=== PATIENT | male | born 1960 | race African-American/Black ===

== ENCOUNTER 2019-08-31 16:05 | Inpatient (IN) | payer MEDICARE, OTHER ==
[~2019-08-31] VITALS: Ht 172.7 cm; Wt 53.3 kg
[2019-08-31] MEDS ORDERED: ASPIRIN CHEWABLE 81 MG TABLET. PO ONE (16:30)
[2019-08-31] MEDS ORDERED: NITROGLYCERIN SUBLINGUAL 0.4 MG BOTTLE OF 25. SL PRN (16:30)
--- NOTE | 2019-08-31 17:06 | RAD ---
PORTABLE CHEST 1V Clinical indications: Chest pain and abdominal pain for one week. COMPARISON: December 26, 2015. Findings: No acute lung infiltrate or pleural effusion or pulmonary edema or lung mass or pneumothorax is seen. The heart size, pulmonary vasculature, mediastinum and both ken are stable. Impression: No acute radiographic abnormality is seen. Electronically signed by: Chase Harrell MD (08/31/2019 5:03 PM) [facility]
--- NOTE | 2019-08-31 17:19 | PHYS DOC ---
Past Medical History Past Medical History: Depression, Diabetes-Type II, High Cholesterol, Hypertension, Other Additional Past Medical Histor: myasthenia gravis Past Surgical History: Coronary Bypass Surgery, Other Additional Past Surgical Histo: spinal Alcohol Use: None Drug Use: None Adult General Chief Complaint Chief Complaint: CHEST PAIN HPI HPI Patient is a 59 year old with history of coronary artery disease status post CABG, diabetes, hypertension and dyslipidemia, smoking who presents with complaining of chest pain and side pain. Patient states he has had intermittent episodes of chest pain for the last 1 week and had pain in the substernal area all day. Patient states he had a syncopal episode yesterday and had a fall without head injury. Patient complaining of increasing pain since his fall as a sharp pain with radiation to his back and associated with shortness of breath, nausea, dizziness, palpitation. Patient states he had more than 10 episodes of diarrhea yesterday and more than 10 episodes of nonbloody diarrhea today and complaining of left lower quadrant cramping pain and rated his pain 10 over 10. Patient states he usually gets episodes of syncope with his pain. Patient denies taking aspirin or nitroglycerin today. Review of Systems Review of Systems Constitutional: Denies fever or chills [] Eyes: Denies change in visual acuity, redness, or eye pain [] HENT: Denies nasal congestion or sore throat [] Respiratory: Denies cough, reports shortness of breath [] Cardiovascular: No additional information not addressed in HPI [] GI: Reports abdominal pain, diarrhea [] : Denies dysuria or hematuria [] Musculoskeletal: Denies back pain or joint pain [] Integument: Denies rash or skin lesions [] Neurologic: Denies headache, focal weakness or sensory changes [] Endocrine: Denies polyuria or polydipsia [] All other systems were reviewed and found to be within normal limits, except as documented in this note. Current Medications Current Medications Current Medications Medications (Trade) Dose Ordered Sig/Ana Maria Start Time Stop Time Status Last Admin Dose Admin Aspirin (Children'S Aspirin) 324 mg 1X ONCE 08/31/19 16:30 08/31/19 16:35 DC Nitroglycerin (Nitrostat) 0.4 mg PRN Q5MIN PRN 08/31/19 16:30 09/01/19 16:29 Allergies Allergies Allergies Coded Allergies Type Severity Reaction Last Updated Verified No Known Drug Allergies 2/22/16 No Physical Exam Physical Exam Constitutional: Well developed, well nourished, mild distress, non-toxic appearance. [] HENT: Normocephalic, atraumatic. Eyes: PERRLA, EOMI, conjunctiva normal, no discharge. [] Neck: Normal range of motion, no tenderness, supple, no stridor. [] Cardiovascular:Heart rate regular rhythm, no murmur [] Lungs & Thorax: Bilateral breath sounds clear to auscultation , reproducible negro bsternal pain[] Abdomen: Bowel sounds normal, soft, left lower quadrant guarding, no tenderness, no masses, no pulsatile masses. [] Skin: Warm, dry, no erythema, no rash. [] Back: No tenderness, no CVA tenderness. [] Extremities: No tenderness, no cyanosis, no clubbing, ROM intact, no edema. [] Neurologic: Alert and oriented X 3, no focal deficits noted. [] Psychologic: Affect anxious, judgement normal, mood normal. [] Current Patient Data Vital Signs Vital Signs Date Time Temp Pulse Resp B/P (MAP) Pulse Ox O2 Delivery O2 Flow Rate FiO2 08/31/19 16:58 98.7 75 18 153/71 (98) 96 Room Air 98.7 Lab Values Laboratory Tests Test 08/31/19 17:16 Prothrombin Time 13.3 SEC (11.7-14.0) Prothrombin Time INR 1.0 (0.8-1.1) Sodium Level 140 mmol/L (136-145) Potassium Level 4.0 mmol/L (3.5-5.1) Chloride Level 102 mmol/L (98-107) Carbon Dioxide Level 28 mmol/L (21-32) Anion Gap 10 (6-14) Blood Urea Nitrogen 22 mg/dL (8-26) Creatinine 1.1 mg/dL (0.7-1.3) Estimated GFR (Cockcroft-Gault) 82.6 BUN/Creatinine Ratio 20 (6-20) Glucose Level 333 mg/dL (70-99) H Calcium Level 8.8 mg/dL (8.5-10.1) Magnesium Level 1.6 mg/dL (1.8-2.4) L Total Bilirubin 0.6 mg/dL (0.2-1.0) Aspartate Amino Transferase (AST) 11 U/L (15-37) L Alanine Aminotransferase (ALT) 15 U/L (16-63) L Alkaline Phosphatase 79 U/L (46-116) Creatine Kinase 64 U/L (39-308) Troponin I Quantitative < 0.017 ng/mL (0.000-0.055) JC-Cai-Y-Type Natriuretic Peptide 361 pg/mL (0-124) H Total Protein 7.3 g/dL (6.4-8.2) Albumin 3.4 g/dL (3.4-5.0) Albumin/Globulin Ratio 0.9 (1.0-1.7) L Lipase 31 U/L (73-393) L Laboratory Tests 08/31/19 17:16 EKG EKG EKG interpreted by me. EKG at 1622 showed normal sinus rhythm at rate of 77, left atrial abnormality, poor R-wave progress in anteroseptal leads, no acute ST and T-wave elevation. Radiology/Procedures Radiology/Procedures [][facility] [address] [place] [address] IMAGING REPORT Signed PATIENT: PEDRITO LOPEZ ACCOUNT: [id number] : 1960 LOCATION: ER AGE: 59 SEX: M EXAM STATUS: REG ER ORD. PHYSICIAN: SIS WOLFE MD REASON: chest pain and abdominal pain x1 week PROCEDURE: PORTABLE CHEST 1V PORTABLE CHEST 1V Clinical indications: Chest pain and abdominal pain for one week. COMPARISON: December 26, 2015. Findings: No acute lung infiltrate or pleural effusion or pulmonary edema or lung mass or pneumothorax is seen. The heart size, pulmonary vasculature, mediastinum and both ken are stable. Impression: No acute radiographic abnormality is seen. Electronically signed by: Uday Harrell MD (08/31/2019 5:03 PM) [facility] DICTATED and SIGNED BY: UDAY HARRELL MD DATE: 08/31/19 7895 Course & Med Decision Making Course & Med Decision Making Pertinent Labs and Imaging studies reviewed. (See chart for details) Patient requiring admission for further evaluation and treatment. Discussed with Dr. Olvera who is in agreement with admission. Discussed findings and plan with patient and family, who acknowledge understanding and agreement. Dragon Disclaimer Dragon Disclaimer This electronic medical record was generated, in whole or in part, using a voice recognition dictation system. Departure Departure Impression: Primary Impression: Acute chest pain Additional Impressions: Syncope Left lower quadrant pain Diarrhea Hyperglycemia Hypomagnesemia Disposition: ADMITTED INPATIENT (at 1706) Admitting Physician: RAFAEL (Dr. Olvera accepted admission at 1705) Condition: IMPROVED Referrals: UNKNOWN PCP NAME (PCP) The HEART Score for CP Pts HEART Score for Chest Pain: HEART Score for Chest Pain Response (Comments) Value History Moderately Suspicious 1 ECG Nonspecific Repolarizatio 1 Age >45 - < 65 1 Risk Factors >3 Risk Factors or Hx CAD 2 Troponin < Normal Limit 0 Total 5 Risk Factors: Risk Factors: DM, Current or recent (<one month) smoker, HTN, HLP, family history of CAD, obesity. Risk Scores: Score 0 - 3: 2.5% MACE over next 6 weeks - Discharge Home Score 4 - 6: 20.3% MACE over next 6 weeks - Admit for Clinical Observation Score 7 - 10: 72.7% MACE over next 6 weeks - Early Invasive Strategies Problem Qualifiers Additional Impressions: Syncope Syncope type: unspecified Qualified Codes: R55 - Syncope and collapse Diarrhea Diarrhea type: unspecified type Qualified Codes: R19.7 - Diarrhea, unspecified SIS WOLFE MD Aug 31, 2019 17:19
[2019-08-31 17:38] LABS: CALCIUM 8.8 mg/dL (8.5-10.1); CREATININE 1.1 mg/dL (0.7-1.3); GFR 82.6
--- NOTE | 2019-08-31 17:40 | PDOC1 ---
History and Physical Date of Admission Date of Admission DATE: 08/31/19 TIME: 17:38 Identification/Chief Complaint Chief Complaint Chest pain, syncope History of Present Illness History of Present Illness Mr Mims is a 59 year old with history of coronary artery disease status post CABG, diabetes, hypertension, dyslipidemia, smoking, Depression, and myasthenia gravis who presents with complaining of chest pain and side pain. Patient states he has had intermittent episodes of chest pain for the last 1 week and had pain in the substernal area since yesterday. Patient states he had a syncopal episode yesterday and had a fall without head injury and his friend has insisted he come to the ED. Patient complaining of increasing pain since his fall as a sharp pain with radiation to his back and associated with shortness of breath, nausea, dizziness, palpitation. Patient states he had more than 10 episodes of diarrhea yesterday and more than 10 episodes of nonbloody diarrhea today and complaining of left lower quadrant cramping pain and rated his pain 10 over 10. Patient denies taking aspirin or nitroglycerin today. Labs significant for glucose of 333, otherwise negative troponin. EKG - normal sinus rhythm at rate of 77, left atrial abnormality, poor R-wave progress in anteroseptal leads, no acute ST and T-wave elevation. CXR no acute abnormalities. His orthostatics were negative in ED on my examination. Due to his high risk cardiac history with CABG and his symptoms will admit for further workup Past Medical History Cardiovascular: CAD, HTN, Syncope, Hyperlipidemia Pulmonary: No pertinent hx CENTRAL NERVOUS SYSTEM: Other (Myasthenia Gravis) GI: No pertinent hx Heme/Onc: No pertinent hx Hepatobiliary: No pertinent hx Psych: Depression Rheumatologic: No pertinent hx Infectious disease: No pertinent hx ENT: No pertinent hx Renal/: Benign prostatic enlarg. Endocrine: Diabetes Dermatology: No pertinent hx Past Surgical History Past Surgical History: CABG Family History Family History: Diabetes, High Cholestrol, Hypertension Social History Smoke: 1 pack per day ALCOHOL: none Drugs: None Current Problem List Problem List Problems Medical Problems: (1) Acute chest pain Status: Acute (2) Diarrhea Status: Acute (3) Left lower quadrant pain Status: Acute (4) Syncope Status: Acute Current Medications Current Medications Current Medications Aspirin (Children'S Aspirin) 324 mg 1X ONCE PO ; Start 08/31/19 at 16:30; Stop 08/31/19 at 16:35; Status DC Nitroglycerin (Nitrostat) 0.4 mg PRN Q5MIN PRN SL CP RATING > 1/10; Start 08/31/19 at 16:30; Stop 09/01/19 at 16:29 Allergies Allergies: Coded Allergies: No Known Drug Allergies (Unverified , 12/26/15) ROS General: YES: Fatigue, Malaise; No: Chills, Night Sweats, Appetite, Other PSYCHOLOGICAL ROS: No: Anxiety, Behavioral Disorder, Concentration difficultie, Decreased libido, Depression, Disorientation, Hallucinations, Hostility, Irritablity, Memory difficulties, Mood Swings, Obsessive thoughts, Physical abuse, Sexual abuse, Sleep disturbances, Suicidal ideation, Other Eyes: No Blurry vision, No Decreased vision, No Double vision, No Dry eyes, No Excessive tearing, No Eye Pain, No Itchy Eyes, No Loss of vision, No Photoph obia, No Scotomata, No Uses contacts, No Uses glasses, No Other HEENT: No: Heacaches, Visual Changes, Hearing change, Nasal congestion, Nasal discharge, Oral lesions, Sinus pain, Sore Throat, Epistaxis, Sneezing, Snoring, Tinnitus, Vertigo, Vocal changes, Other ALLERGY AND IMMUNOLOGY: No: Hives, Insect Bite Sensitivity, Itchy/Watery Eyes, Nasal Congestion, Post Nasal Drip, Seasonal Allergies, Other Hematological and Lymphatic: No: Bleeding Problems, Blood Clots, Blood Transfusions, Brusing, Night Sweats, Pallor, Swollen Lymph Nodes, Other ENDOCRINE: No: Breast Changes, Galactorrhea, Hair Pattern Changes, Hot Flashes, Malaise/lethargy, Mood Swings, Palpitations, Polydipsia/polyuria, Skin Changes, Temperature Intolerance, Unexpected Weight Changes, Other Breast: No New/Changing Breast Lumps, No Nipple changes, No Nipple discharge, No Other Respiratory: YES: Shortness of breath; No: Cough, Hemoptysis, Orthopnea, Pleuritic Pain, SOB with excertion, Sputum Changes, Stridor, Tachypnea, Wheezing, Other Cardiovascular: yes Chest Pain; No Palpitations, No Orthopnea, No Paroxysmal Noc. Dyspnea, No Edema, No Lt Headedness, No Other Gastrointestinal: Yes Nausea, Yes Abdominal Pain, Yes Diarrhea, Yes Constipation; No Vomiting, No Melena, No Hematochezia, No Other Genitourinary: No Dysuria, No Frequency, No Incontinence, No Hematuria, No Retention, No Discharge, No Urgency, No Pain, No Flank Pain, No Other, No , No , No , No , No , No , No Musculoskeletal: No Gait Disturbance, No Joint Pain, No Joint Stiffness, No Joint Swelling, No Muscle Pain, No Muscular Weakness, No Pain In:, No Swelling In:, No Other Neurological: No Behavorial Changes, No Bowel/Bladder ControlChng, No Confusion, No Dizziness, No Gait Disturbance, No Headaches, No Impaired Coord/balance, No Memory Loss, No Numbness/Tingling, No Seizures, No Speech Problems, No Tremors, No Visual Changes, No Weakness, No Other Skin: No Dry Skin, No Eczema, No Hair Changes, No Lumps, No Mole Changes, No Mottling, No Nail Changes, No Pruritus, No Rash, No Skin Lesion Changes, No Other, No Acne Physical Exam General: Alert, Oriented X3, Cooperative, No acute distress HEENT: Atraumatic, PERRLA, EOMI, Mucous membr. moist/pink Lungs: Clear to auscultation, Normal air movement Heart: S1S2, RRR, no thrills, no rubs, no gallops, no murmurs Abdomen: Normal bowel sounds, Soft, No hepatosplenomegaly, No masses, Other (LUQ tender and LLQ tender) Rectal Exam: not examined Extremities: No clubbing, No cyanosis, No edema, Normal pulses, No tenderness/swelling Skin: No rashes, No breakdown, No significant lesion Neuro: Normal gait, Normal speech, Strength at 5/5 X4 ext, Normal tone, Sensation intact, Cranial nerves 3-12 NL, Reflexes 2+ Psych/Mental Status: Mental status NL, Mood NL Vitals Vitals Vital Signs Date Time Temp Pulse Resp B/P (MAP) Pulse Ox O2 Delivery O2 Flow Rate FiO2 08/31/19 16:58 98.7 75 18 153/71 (98) 96 Room Air 98.7 Labs Labs Laboratory Tests Test 08/31/19 17:16 Sodium Level 140 mmol/L (136-145) Potassium Level 4.0 mmol/L (3.5-5.1) Chloride Level 102 mmol/L (98-107) Carbon Dioxide Level 28 mmol/L (21-32) Anion Gap 10 (6-14) Blood Urea Nitrogen 22 mg/dL (8-26) Creatinine 1.1 mg/dL (0.7-1.3) Estimated GFR (Cockcroft-Gault) 82.6 BUN/Creatinine Ratio 20 (6-20) Glucose Level 333 mg/dL (70-99) Calcium Level 8.8 mg/dL (8.5-10.1) Laboratory Tests Test 08/31/19 17:16 Sodium Level 140 mmol/L (136-145) Potassium Level 4.0 mmol/L (3.5-5.1) Chloride Level 102 mmol/L (98-107) Carbon Dioxide Level 28 mmol/L (21-32) Anion Gap 10 (6-14) Blood Urea Nitrogen 22 mg/dL (8-26) Creatinine 1.1 mg/dL (0.7-1.3) Estimated GFR (Cockcroft-Gault) 82.6 BUN/Creatinine Ratio 20 (6-20) Glucose Level 333 mg/dL (70-99) Calcium Level 8.8 mg/dL (8.5-10.1) Images Images CXR - no acute abnormalities VTE Prophylaxis Ordered VTE Prophylaxis Devices: No VTE Pharmacological Prophylaxi: Yes Assessment/Plan Assessment/Plan A/P: Chest pain - with strong history, will trend troponins. ASA, NTG helped, will consult cardiology. Syncope - no tachycardia, but does have CP, will r/o VTE with d dimer, CTPA if it is elevated, otherwise will check echo and carotid dopplers. Likely vasovagal from his GI complaints Hypomagnesemia - 1.6, will replace IV. Check in AM Abdominal pain with diarrhea - He was c/o constipation prior to his multiple BM, possibly this is overflow constipation from pain medications. Will start psyllium. Imaging tomorrow if necessary coronary artery disease status post CABG - stable on meds Diabetes - with hyperglycemia, will place on basal bolus plus regimen for insulin Hypertension - cont losartan Dyslipidemia - cont statin Smoking - offered nicotine patch Depression - he has f/u at [facility], is on a number of medications, this could play a role in his syncope as well Myasthenia gravis - cont mestinon FEN - ADA cardiac diet PPX - lovenox FULL CODE Dispo - CVC for high risk cardiac patient with chest pain RIFFEL,CHRISTOPHER S MD Aug 31, 2019 17:40
[2019-08-31 17:41] LABS: PROTHROMBIN TIME PATIENT 13.3 SEC (11.7-14.0)
[2019-08-31 17:44] LABS: ALBUMIN 3.4 g/dL (3.4-5.0); ALBUMIN/GLOBULIN RATIO 0.9 (1.0-1.7); MAGNESIUM 1.6 mg/dL (1.8-2.4); TOTAL BILIRUBIN 0.6 mg/dL (0.2-1.0); TOTAL PROTEIN 7.3 g/dL (6.4-8.2)
[2019-08-31 18:04] LABS: BASO % 0 % (0-3); EOS % 0 % (0-3); HEMATOCRIT 41.2 % (39.0-53.0); HEMOGLOBIN 13.4 g/dL (13.0-17.5); LYMPH % 10 % (24-48); MEAN CORPUSCULAR HEMOGLOBIN 30 pg (25-35); MEAN CORPUSCULAR HGB CONC 32 g/dL (31-37); MEAN CORPUSCULAR VOLUME 92 fL (79-100); MONO # 0.6 x10^3/uL (0.0-1.1); MONO % 6 % (0-9); NEUT # 8.6 x10^3/uL (1.8-7.7); NEUT % 84 % (31-73); PLATELET COUNT 200 x10^3/uL (140-400); RED BLOOD COUNT 4.48 x10^6/uL (4.30-5.70); RED CELL DISTRIBUTION WIDTH 13.1 % (11.5-14.5); WHITE BLOOD COUNT 10.1 x10^3/uL (4.0-11.0)
[2019-08-31] MEDS ORDERED: MAGNESIUM SULFATE 2GM 50 ML IV ONE (18:15)
--- NOTE | 2019-08-31 18:49 | EKG ---
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
[2019-08-31 19:40] VITALS: BP 126/69
[2019-08-31] MEDS ORDERED: DEXTROSE 50% 25 GM / 50ML DISP.SYRIN. IV PRN (20:45)
[2019-08-31] MEDS: ENOXAPARIN 40 MG/0.4 ML SYRINGE. SQ SCH (22:02)
[2019-08-31] MEDS: INSULIN LISPRO 300 UNITS/3 ML VIAL. SQ SCH (22:08)
[2019-08-31] MEDS: INSULIN GLARGINE SYRINGE. SQ SCH (22:08)
[2019-08-31] MEDS ORDERED: OMEP40CA45 PO (22:25)
[2019-08-31] MEDS ORDERED: MIRT30TA3 PO (22:25)
[2019-08-31] MEDS ORDERED: OLAN10TA9 PO (22:25)
[2019-08-31] MEDS ORDERED: VENL75CA6 PO (22:25)
[2019-08-31] MEDS ORDERED: INSU100I17 SQ (22:25)
[2019-08-31] MEDS ORDERED: LOSA50TA15 PO (22:25)
[2019-08-31] MEDS ORDERED: CLOP75TA PO (22:25)
[2019-08-31] MEDS ORDERED: PYRI60TA PO (22:25)
[2019-08-31] MEDS ORDERED: ARIP30TA21 PO (22:25)
[2019-08-31] MEDS ORDERED: FINA5TAB4 PO (22:25)
[2019-08-31] MEDS ORDERED: HYDR-2763 PO (22:25)
[2019-08-31] MEDS ORDERED: ATOR20TA58 PO (22:25)
[2019-08-31] MEDS ORDERED: GABA300C9 PO (22:25)
[2019-08-31] MEDS ORDERED: TAMS0.4C97 PO (22:25)
[2019-08-31] MEDS ORDERED: DIAZ10TA5 PO (22:25)
[2019-08-31] MEDS ORDERED: diazePAM 5 MG TABLET PO PRN (22:45)
[2019-08-31] MEDS ORDERED: POLYETHYLENE GLYCOL 3350 17 GM PACKET. PO PRN (22:45)
[2019-08-31] MEDS ORDERED: SENNOSIDES/DOCUSATE 8.6/50MG TABLET. PO PRN (22:45)
[2019-08-31 22:53] VITALS: BP 140/64
[2019-08-31] MEDS ORDERED: POLYETHYLENE GLYCOL 3350 17 GM PACKET. PO SCH (23:00)
[2019-08-31] MEDS: PSYLLIUM HUSK (SUGAR FREE) 1 PKT PACKET PO SCH (23:00)
[2019-08-31] MEDS: ARIPiprazole 5 MG TABLET PO SCH (23:58)
[2019-08-31] MEDS: OLANZapine 5 MG TABLET PO SCH (23:58)
[2019-08-31] MEDS: MIRTAZAPINE 15 MG TABLET PO SCH (23:58)
[2019-08-31] MEDS: PYRIDOSTIGMINE BROMIDE 60 MG TABLET PO SCH (23:58)
[2019-08-31] MEDS: TAMSULOSIN 0.4 MG CAP.ER.24H. PO SCH (23:59)
[2019-08-31] MEDS: ATORVASTATIN CALCIUM 20 MG TABLET PO SCH (23:59)
[2019-09-01] MEDS: GABAPENTIN 300 MG CAPSULE. PO SCH ×4 (00:01→22:00)
--- NOTE | 2019-09-01 03:04 | RAD ---
Bilateral Duplex Carotid Ultrasound Indication: Dizziness and lightheadedness Procedure: Two dimensional, duplex and color-flow images and spectral analysis are obtained of the carotid arteries bilaterally. Vertebral arteries are also imaged. Findings: Right Carotid: The 2 D images demonstrate mild plaquing with no evidence of significant narrowing. The color images are normal without turbulence or jet effect. On the right ICA peak systolic velocity is 79 cm/sec. I The ICA/CCA ratio is 1.3 . Left Carotid: The 2 D images demonstrate mild plaquing with no evidence of significant narrowing. The color images are normal without turbulence or jet effect. On the left ICA peak systolic velocity is 92 cm/sec. The ICA/CCA ratio is 0.8 . Vertebral Arteries: The right vertebral artery is normal with normal direction of flow. The left vertebral artery is normal with normal direction of flow. Impression: Normal carotid ultrasound with no hemodynamically significant stenosis. PQRS Compliance Statement - Stenosis calculations for CT, MR and conventional angiography are based upon measurement of the distal ICA diameter in accordance with the NASCET methodology. Stenosis calculations for carotid ultrasound studies are derived from validated velocity criteria which are known to correlate with the NASCET methodology. Electronically signed by: Israel Amaro III, MD (09/01/2019 3:01 AM) [facility]
[2019-09-01 03:27] VITALS: BP 94/41
[2019-09-01 03:38] LABS: CALCIUM 8.9 mg/dL (8.5-10.1); GFR 92.2; MAGNESIUM 2.2 mg/dL (1.8-2.4); POTASSIUM 3.8 mmol/L (3.5-5.1)
[2019-09-01 07:00] VITALS: BP 133/65
[2019-09-01] MEDS: INSULIN LISPRO 300 UNITS/3 ML VIAL. SQ SCH ×7 (07:30→22:14)
[2019-09-01 08:16] LABS: CHOLESTEROL/HDL RATIO 2.6
--- NOTE | 2019-09-01 08:19 | PDOC ---
PROGRESS NOTES Chief Complaint Chief Complaint A/P: Chest pain - with strong history, will trend troponins. ASA, NTG helped, will consult cardiology. Syncope - no tachycardia, but does have CP, will r/o VTE with d dimer, CTPA if it is elevated, otherwise will check echo and carotid dopplers. Likely vasovagal from his GI complaints Hypomagnesemia - 1.6, will replace IV. Check in AM Abdominal pain with diarrhea - He was c/o constipation prior to his multiple BM, possibly this is overflow constipation from pain medications. Will start psyllium. Imaging tomorrow if necessary coronary artery disease status post CABG - stable on meds Diabetes - with hyperglycemia, will place on basal bolus plus regimen for insulin Hypertension - cont losartan Dyslipidemia - cont statin Smoking - offered nicotine patch Depression - he has f/u at [facility], is on a number of medications, this could play a role in his syncope as well Myasthenia gravis - cont mestinon FEN - ADA cardiac diet PPX - lovenox FULL CODE Dispo - CVC for high risk cardiac patient with chest pain History of Present Illness History of Present Illness Mr Mims is a 59 year old with history of coronary artery disease status post CABG, diabetes, hypertension, dyslipidemia, smoking, Depression, and myasthenia gravis who presents with complaining of chest pain and side pain. Patient states he has had intermittent episodes of chest pain for the last 1 week and had pain in the substernal area since yesterday. Patient states he had a syncopal episode yesterday and had a fall without head injury and his friend has insisted he come to the ED. Patient complaining of increasing pain since his fall as a sharp pain with radiation to his back and associated with shortness of breath, nausea, dizziness, palpitation. Patient states he had more than 10 episodes of diarrhea yesterday and more than 10 episodes of nonbloody diarrhea today and complaining of left lower quadrant cramping pain and rated his pain 10 over 10. Patient denies taking aspirin or nitroglycerin today. Labs significant for glucose of 333, otherwise negative troponin. EKG - normal sinus rhythm at rate of 77, left atrial abnormality, poor R-wave progress in anteroseptal leads, no acute ST and T-wave elevation. CXR no acute abnormalities. His orthostatics were negative in ED on my examination. Due to his high risk cardiac history with CABG and his symptoms admitted for further workup. Overnight his abdominal symptoms improved. Carotid dopplers clear. Blood glucose improved. He slept well. Still with chest discomfort. d dimer is elevated. Will go forward with CTPA to r/o PE as cause of his syncopal episode. Vitals Vitals Vital Signs Date Time Temp Pulse Resp B/P (MAP) Pulse Ox O2 Delivery O2 Flow Rate FiO2 09/01/19 03:27 98.6 58 16 94/41 (58) 91 Room Air 98.6 Physical Exam General: Alert, Oriented X3, Cooperative, No acute distress Abdomen: Normal bowel sounds, Soft, No hepatosplenomegaly, No masses, Other (LUQ tender and LLQ tender) Extremities: No clubbing, No cyanosis, No edema, Normal pulses, No tenderness/swelling Skin: No rashes, No breakdown, No significant lesion Labs LABS Laboratory Tests Test 08/31/19 17:16 08/31/19 20:50 08/31/19 22:02 09/01/19 00:15 White Blood Count 10.1 x10^3/uL (4.0-11.0) Red Blood Count 4.48 x10^6/uL (4.30-5.70) Hemoglobin 13.4 g/dL (13.0-17.5) Hematocrit 41.2 % (39.0-53.0) Mean Corpuscular Volume 92 fL (79-100) Mean Corpuscular Hemoglobin 30 pg (25-35) Mean Corpuscular Hemoglobin Concent 32 g/dL (31-37) Red Cell Distribution Width 13.1 % (11.5-14.5) Platelet Count 200 x10^3/uL (140-400) Neutrophils (%) (Auto) 84 % (31-73) Lymphocytes (%) (Auto) 10 % (24-48) Monocytes (%) (Auto) 6 % (0-9) Eosinophils (%) (Auto) 0 % (0-3) Basophils (%) (Auto) 0 % (0-3) Neutrophils # (Auto) 8.6 x10^3/uL (1.8-7.7) Lymphocytes # (Auto) 1.0 x10^3/uL (1.0-4.8) Monocytes # (Auto) 0.6 x10^3/uL (0.0-1.1) Eosinophils # (Auto) 0.0 x10^3/uL (0.0-0.7) Basophils # (Auto) 0.0 x10^3/uL (0.0-0.2) Prothrombin Time 13.3 SEC (11.7-14.0) Prothromb Time International Ratio 1.0 (0.8-1.1) Sodium Level 140 mmol/L (136-145) Potassium Level 4.0 mmol/L (3.5-5.1) Chloride Level 102 mmol/L (98-107) Carbon Dioxide Level 28 mmol/L (21-32) Anion Gap 10 (6-14) Blood Urea Nitrogen 22 mg/dL (8-26) Creatinine 1.1 mg/dL (0.7-1.3) Estimated GFR (Cockcroft-Gault) 82.6 BUN/Creatinine Ratio 20 (6-20) Glucose Level 333 mg/dL (70-99) Calcium Level 8.8 mg/dL (8.5-10.1) Magnesium Level 1.6 mg/dL (1.8-2.4) Total Bilirubin 0.6 mg/dL (0.2-1.0) Aspartate Amino Transf (AST/SGOT) 11 U/L (15-37) Alanine Aminotransferase (ALT/SGPT) 15 U/L (16-63) Alkaline Phosphatase 79 U/L (46-116) Creatine Kinase 64 U/L (39-308) Troponin I Quantitative < 0.017 ng/mL (0.000-0.055) < 0.017 ng/mL (0.000-0.055) < 0.017 ng/mL (0.000-0.055) CB-Tjx-U-Type Natriuretic Peptide 361 pg/mL (0-124) Total Protein 7.3 g/dL (6.4-8.2) Albumin 3.4 g/dL (3.4-5.0) Albumin/Globulin Ratio 0.9 (1.0-1.7) Lipase 31 U/L (73-393) Glucose (Fingerstick) 377 mg/dL (70-99) D-Dimer (Maye) 3.89 ug/mlFEU (0.00-0.50) Test 09/01/19 03:00 Sodium Level 142 mmol/L (136-145) Potassium Level 3.8 mmol/L (3.5-5.1) Chloride Level 105 mmol/L (98-107) Carbon Dioxide Level 28 mmol/L (21-32) Anion Gap 9 (6-14) Blood Urea Nitrogen 21 mg/dL (8-26) Creatinine 1.0 mg/dL (0.7-1.3) Estimated GFR (Cockcroft-Gault) 92.2 Glucose Level 132 mg/dL (70-99) Calcium Level 8.9 mg/dL (8.5-10.1) Magnesium Level 2.2 mg/dL (1.8-2.4) Triglycerides Level 78 mg/dL (0-150) Cholesterol Level 138 mg/dL (0-200) LDL Cholesterol, Calculated 69 mg/dL (0-100) VLDL Cholesterol, Calculated 16 mg/dL (0-40) Non-HDL Cholesterol Calculated 85 mg/dL (0-129) HDL Cholesterol 53 mg/dL (40-60) Cholesterol/HDL Ratio 2.6 Assessment and Plan Assessmemt and Plan Problems Medical Problems: (1) Acute chest pain Status: Acute (2) Diarrhea Status: Acute (3) Hyperglycemia Status: Acute (4) Hypomagnesemia Status: Acute (5) Left lower quadrant pain Status: Acute (6) Syncope Status: Acute Comment Review of Relevant I have reviewed the following items kelechi (where applicable) has been applied. Labs Laboratory Tests Test 08/31/19 17:16 08/31/19 20:50 08/31/19 22:02 09/01/19 00:15 White Blood Count 10.1 x10^3/uL (4.0-11.0) Red Blood Count 4.48 x10^6/uL (4.30-5.70) Hemoglobin 13.4 g/dL (13.0-17.5) Hematocrit 41.2 % (39.0-53.0) Mean Corpuscular Volume 92 fL (79-100) Mean Corpuscular Hemoglobin 30 pg (25-35) Mean Corpuscular Hemoglobin Concent 32 g/dL (31-37) Red Cell Distribution Width 13.1 % (11.5-14.5) Platelet Count 200 x10^3/uL (140-400) Neutrophils (%) (Auto) 84 % (31-73) Lymphocytes (%) (Auto) 10 % (24-48) Monocytes (%) (Auto) 6 % (0-9) Eosinophils (%) (Auto) 0 % (0-3) Basophils (%) (Auto) 0 % (0-3) Neutrophils # (Auto) 8.6 x10^3/uL (1.8-7.7) Lymphocytes # (Auto) 1.0 x10^3/uL (1.0-4.8) Monocytes # (Auto) 0.6 x10^3/uL (0.0-1.1) Eosinophils # (Auto) 0.0 x10^3/uL (0.0-0.7) Basophils # (Auto) 0.0 x10^3/uL (0.0-0.2) Prothrombin Time 13.3 SEC (11.7-14.0) Prothromb Time International Ratio 1.0 (0.8-1.1) Sodium Level 140 mmol/L (136-145) Potassium Level 4.0 mmol/L (3.5-5.1) Chloride Level 102 mmol/L (98-107) Carbon Dioxide Level 28 mmol/L (21-32) Anion Gap 10 (6-14) Blood Urea Nitrogen 22 mg/dL (8-26) Creatinine 1.1 mg/dL (0.7-1.3) Estimated GFR (Cockcroft-Gault) 82.6 BUN/Creatinine Ratio 20 (6-20) Glucose Level 333 mg/dL (70-99) Calcium Level 8.8 mg/dL (8.5-10.1) Magnesium Level 1.6 mg/dL (1.8-2.4) Total Bilirubin 0.6 mg/dL (0.2-1.0) Aspartate Amino Transf (AST/SGOT) 11 U/L (15-37) Alanine Aminotransferase (ALT/SGPT) 15 U/L (16-63) Alkaline Phosphatase 79 U/L (46-116) Creatine Kinase 64 U/L (39-308) Troponin I Quantitative < 0.017 ng/mL (0.000-0.055) < 0.017 ng/mL (0.000-0.055) < 0.017 ng/mL (0.000-0.055) EB-Act-D-Type Natriuretic Peptide 361 pg/mL (0-124) Total Protein 7.3 g/dL (6.4-8.2) Albumin 3.4 g/dL (3.4-5.0) Albumin/Globulin Ratio 0.9 (1.0-1.7) Lipase 31 U/L (73-393) Glucose (Fingerstick) 377 mg/dL (70-99) D-Dimer (Maye) 3.89 ug/mlFEU (0.00-0.50) Test 09/01/19 03:00 Sodium Level 142 mmol/L (136-145) Potassium Level 3.8 mmol/L (3.5-5.1) Chloride Level 105 mmol/L (98-107) Carbon Dioxide Level 28 mmol/L (21-32) Anion Gap 9 (6-14) Blood Urea Nitrogen 21 mg/dL (8-26) Creatinine 1.0 mg/dL (0.7-1.3) Estimated GFR (Cockcroft-Gault) 92.2 Glucose Level 132 mg/dL (70-99) Calcium Level 8.9 mg/dL (8.5-10.1) Magnesium Level 2.2 mg/dL (1.8-2.4) Triglycerides Level 78 mg/dL (0-150) Cholesterol Level 138 mg/dL (0-200) LDL Cholesterol, Calculated 69 mg/dL (0-100) VLDL Cholesterol, Calculated 16 mg/dL (0-40) Non-HDL Cholesterol Calculated 85 mg/dL (0-129) HDL Cholesterol 53 mg/dL (40-60) Cholesterol/HDL Ratio 2.6 Laboratory Tests Test 08/31/19 17:16 08/31/19 20:50 08/31/19 22:02 09/01/19 00:15 White Blood Count 10.1 x10^3/uL (4.0-11.0) Red Blood Count 4.48 x10^6/uL (4.30-5.70) Hemoglobin 13.4 g/dL (13.0-17.5) Hematocrit 41.2 % (39.0-53.0) Mean Corpuscular Volume 92 fL (79-100) Mean Corpuscular Hemoglobin 30 pg (25-35) Mean Corpuscular Hemoglobin Concent 32 g/dL (31-37) Red Cell Distribution Width 13.1 % (11.5-14.5) Platelet Count 200 x10^3/uL (140-400) Neutrophils (%) (Auto) 84 % (31-73) Lymphocytes (%) (Auto) 10 % (24-48) Monocytes (%) (Auto) 6 % (0-9) Eosinophils (%) (Auto) 0 % (0-3) Basophils (%) (Auto) 0 % (0-3) Neutrophils # (Auto) 8.6 x10^3/uL (1.8-7.7) Lymphocytes # (Auto) 1.0 x10^3/uL (1.0-4.8) Monocytes # (Auto) 0.6 x10^3/uL (0.0-1.1) Eosinophils # (Auto) 0.0 x10^3/uL (0.0-0.7) Basophils # (Auto) 0.0 x10^3/uL (0.0-0.2) Prothrombin Time 13.3 SEC (11.7-14.0) Prothromb Time International Ratio 1.0 (0.8-1.1) Sodium Level 140 mmol/L (136-145) Potassium Level 4.0 mmol/L (3.5-5.1) Chloride Level 102 mmol/L (98-107) Carbon Dioxide Level 28 mmol/L (21-32) Anion Gap 10 (6-14) Blood Urea Nitrogen 22 mg/dL (8-26) Creatinine 1.1 mg/dL (0.7-1.3) Estimated GFR (Cockcroft-Gault) 82.6 BUN/Creatinine Ratio 20 (6-20) Glucose Level 333 mg/dL (70-99) Calcium Level 8.8 mg/dL (8.5-10.1) Magnesium Level 1.6 mg/dL (1.8-2.4) Total Bilirubin 0.6 mg/dL (0.2-1.0) Aspartate Amino Transf (AST/SGOT) 11 U/L (15-37) Alanine Aminotransferase (ALT/SGPT) 15 U/L (16-63) Alkaline Phosphatase 79 U/L (46-116) Creatine Kinase 64 U/L (39-308) Troponin I Quantitative < 0.017 ng/mL (0.000-0.055) < 0.017 ng/mL (0.000-0.055) < 0.017 ng/mL (0.000-0.055) FR-Snh-O-Type Natriuretic Peptide 361 pg/mL (0-124) Total Protein 7.3 g/dL (6.4-8.2) Albumin 3.4 g/dL (3.4-5.0) Albumin/Globulin Ratio 0.9 (1.0-1.7) Lipase 31 U/L (73-393) Glucose (Fingerstick) 377 mg/dL (70-99) D-Dimer (Maye) 3.89 ug/mlFEU (0.00-0.50) Test 09/01/19 03:00 Sodium Level 142 mmol/L (136-145) Potassium Level 3.8 mmol/L (3.5-5.1) Chloride Level 105 mmol/L (98-107) Carbon Dioxide Level 28 mmol/L (21-32) Anion Gap 9 (6-14) Blood Urea Nitrogen 21 mg/dL (8-26) Creatinine 1.0 mg/dL (0.7-1.3) Estimated GFR (Cockcroft-Gault) 92.2 Glucose Level 132 mg/dL (70-99) Calcium Level 8.9 mg/dL (8.5-10.1) Magnesium Level 2.2 mg/dL (1.8-2.4) Triglycerides Level 78 mg/dL (0-150) Cholesterol Level 138 mg/dL (0-200) LDL Cholesterol, Calculated 69 mg/dL (0-100) VLDL Cholesterol, Calculated 16 mg/dL (0-40) Non-HDL Cholesterol Calculated 85 mg/dL (0-129) HDL Cholesterol 53 mg/dL (40-60) Cholesterol/HDL Ratio 2.6 Medications Current Medications Aspirin (Children'S Aspirin) 324 mg 1X ONCE PO Last administered on 08/31/19at 18:17; Start 08/31/19 at 16:30; Stop 08/31/19 at 16:35; Status DC Nitroglycerin (Nitrostat) 0.4 mg PRN Q5MIN PRN SL CP RATING > 1/10 Last administered on 08/31/19at 18:18; Start 08/31/19 at 16:30; Stop 09/01/19 at 16:29 Magnesium Sulfate 50 ml @ 25 mls/hr 1X ONCE IV Last administered on 08/31/19at 18:18; Start 08/31/19 at 18:15; Stop 08/31/19 at 20:14; Status DC Insulin Glargine (Lantus Syringe) 12 unit QHS SQ Last administered on 08/31/19at 22:08; Start 08/31/19 at 21:00 Insulin Human Lispro (HumaLOG) 0-7 UNITS TIDACHC SQ Last administered on 08/31/19at 22:08; Start 08/31/19 at 21:00 Dextrose (Dextrose 50%-Water Syringe) 12.5 gm PRN Q15MIN PRN IV SEE COMMENTS; Start 08/31/19 at 20:45 Enoxaparin Sodium (Lovenox 40mg Syringe) 40 mg Q24H SQ Last administered on 08/31/19at 22:02; Start 08/31/19 at 21:00 Atorvastatin Calcium (Lipitor) 20 mg QHS PO Last administered on 08/31/19at 23:59; Start 08/31/19 at 23:00 Clopidogrel Bisulfate (Plavix) 75 mg DAILY PO ; Start 09/01/19 at 09:00 Diazepam (Valium) 10 mg PRN DAILY PRN PO ANXIETY; Start 08/31/19 at 22:45 Finasteride (Proscar) 5 mg DAILY PO ; Start 09/01/19 at 09:00 Gabapentin (Neurontin) 300 mg TID PO Last administered on 09/01/19at 00:01; Start 08/31/19 at 23:00 Acetaminophen/ Hydrocodone Bitart (Lortab 7.5/325) 1 tab PRN TID PRN PO SEVERE PAIN 7-10; Start 08/31/19 at 22:30 Losartan Potassium (Cozaar) 50 mg DAILY PO ; Start 09/01/19 at 09:00 Pyridostigmine [place] (Mestinon) 60 mg BID PO Last administered on 08/31/19at 23:58; Start 08/31/19 at 23:00 Tamsulosin HCl (Flomax) 0.4 mg QHS PO Last administered on 08/31/19at 23:59; Start 08/31/19 at 23:00 Aripiprazole (Abilify) 30 mg QHS PO Last administered on 08/31/19at 23:58; Start 08/31/19 at 23:00 Insulin Human Lispro (HumaLOG) 12 units TIDWMEALS SQ ; Start 09/01/19 at 08:00 Mirtazapine (Remeron) 30 mg QHS PO Last administered on 08/31/19at 23:58; Start 08/31/19 at 23:00 Olanzapine (ZyPREXA) 10 mg QHS PO Last administered on 08/31/19at 23:58; Start 08/31/19 at 23:00 Pantoprazole Sodium (Protonix) 40 mg DAILYAC PO ; Start 09/01/19 at 07:30 Venlafaxine HCl (Effexor Xr) 75 mg DAILY PO ; Start 09/01/19 at 09:00 Polyethylene Glycol (miraLAX PACKET) 17 gm QHS PO ; Start 08/31/19 at 23:00; Stop 08/31/19 at 22:44; Status DC Psyllium Hydrophilic Mucilloid (Metamucil Fiber Packet) 1 pkt QHS PO ; Start 08/31/19 at 23:00 Senna/Docusate Sodium (Senna Plus) 1 tab PRN BID PRN PO CONSTIPATION 1ST CHOICE ; Start 08/31/19 at 22:45 Polyethylene Glycol (miraLAX PACKET) 17 gm PRN DAILY PRN PO constipation 2ND CHOICE; Start 08/31/19 at 22:45 Active Scripts Active Reported Flomax (Tamsulosin Hcl) 0.4 Mg Cap.er.24h 0.4 Mg PO QHS 30 Days Finasteride 5 Mg Tablet 5 Mg PO DAILY 30 Days Clopidogrel (Clopidogrel Bisulfate) 75 Mg Tablet 75 Mg PO DAILY 30 Days Gabapentin 300 Mg Capsule 300 Mg PO TID 30 Days Atorvastatin Calcium 20 Mg Tablet 20 Mg PO QHS 30 Days Losartan Potassium 50 Mg Tablet 50 Mg PO DAILY 30 Days Omeprazole 40 Mg Capsule.dr 40 Mg PO DAILY 30 Days Aripiprazole 30 Mg Tablet 30 Mg PO QHS 30 Days Venlafaxine Hcl Er (Venlafaxine Hcl) 75 Mg Cap.er.24h 75 Mg PO DAILY 30 Days Olanzapine 10 Mg Tablet 10 Mg PO QHS 30 Days Novolog Flexpen (Insulin Aspart) 100 Unit/1 Ml Insuln.pen 12 Units SQ TIDAC 30 Days Hydrocodone-Acetamin 7.5-325 (Hydrocodone/Acetaminophen) 1 Each Tablet 1 Tab PO PRN TID PRN 30 Days Mirtazapine 30 Mg Tablet 30 Mg PO QHS 30 Days Pyridostigmine [place] 60 Mg Tablet 60 Mg PO BID 30 Days Diazepam 10 Mg Tablet 10 Mg PO PRN DAILY PRN 30 Days Vitals/I & O Vital Sign - Last 24 Hours 08/31/19 08/31/19 08/31/19 08/31/19 16:58 17:48 18:16 18:18 Temp 98.7 98.7 Pulse 75 72 70 68 Resp 18 16 18 B/P (MAP) 153/71 (98) 134/67 (89) 138/67 (90) 138/67 Pulse Ox 96 98 100 O2 Delivery Room Air Room Air Room Air 08/31/19 08/31/19 08/31/19 08/31/19 18:18 18:25 19:40 22:53 Temp 98.4 98.5 98.4 98.5 Pulse 68 76 88 74 Resp 18 16 16 16 B/P (MAP) 129/70 (89) 134/73 (93) 126/69 (88) 140/64 (89) Pulse Ox 100 99 98 98 O2 Delivery Room Air Room Air Room Air Room Air 09/01/19 03:27 Temp 98.6 98.6 Pulse 58 Resp 16 B/P (MAP) 94/41 (58) Pulse Ox 91 O2 Delivery Room Air Intake and Output 08/31/19 08/31/19 09/01/19 15:00 23:00 07:00 Intake Total 240 ml Output Total 1 ml Balance -1 ml 240 ml LUCIA MOTTA MD Sep 01, 2019 08:19
[2019-09-01] MEDS ORDERED: IOHEXOL 350 MG/ML 100 ML VIAL. IV ONE (09:00)
[2019-09-01] MEDS ORDERED: CONTRAST GIVEN. MC PRN (09:15)
--- NOTE | 2019-09-01 09:35 | PDOC2 ---
[facility] [employer] [employer] 09/01/19 0935: CARDIAC CONSULT DATE OF CONSULT Date of Consult DATE: 09/01/19 TIME: 09:28 REASON FOR CONSULT Reason for Consult: Chest pain REFERRING PHYSICIAN Referring Physician: May SOURCE Source: Chart review, Patient HISTORY OF PRESENT ILLNESS HISTORY OF PRESENT ILLNESS This is a pleasant 59 yo male admitted for complains of abdominal pain, diarrhea and chest pain. Reports that he was started on a new medication last week but could not remember which. No adjustment on his mestinon. No fever or chills. Reports that his diarrhea started Saturday and has been having at least 4 watery stools a day. He had chest pain lower sternal sharp in consistency lasting about 3 minutes without further recurrence on Saturday. He passed out Saturday <1 minute and just had dizziness and fell but no obvious injury. His diarrhea continued on and abdominal pain mainly epigastric and LLQ and sharp and tender with palpation. No nausea or vomiting. No SOA and no sensation of palpitat ions. He has been having chills but no recorded fever. Also he has not been drinking much fluids. He has been compliant with his medications. PAST MEDICAL HISTORY Cardiovascular: CAD, HTN, ID, Hyperlipidemia GI: No pertinent hx Heme/Onc: Other (Myasthenia gravis; LLE DVT ) Hepatobiliary: No pertinent hx Psych: Bipolar Musculoskeletal: low back pain, Osteoarthritis Rheumatologic: No pertinent hx Infectious disease: No pertinent hx ENT: No pertinent hx Renal/: No pertinent hx Endocrine: Diabetes (2) Dermatology: Other (onychomycosis) PAST SURGICAL HISTORY Past Surgical History: CABG (x4 2014), Other (back surgery) FAMILY HISTORY Family History: Heart Disease (father and mother), Other (mother with lupus) SOCIAL HISTORY Smoke: <1 pack per day ALCOHOL: none Drugs: None Lives: Alone CURRENT MEDICATIONS CURRENT MEDICATIONS Current Medications Medications (Trade) Dose Ordered Sig/Ana Maria Route PRN Reason Start Time Stop Time Status Last Admin Dose Admin Aspirin (Children'S Aspirin) 324 mg 1X ONCE PO 08/31/19 16:30 08/31/19 16:35 DC 08/31/19 18:17 Nitroglycerin (Nitrostat) 0.4 mg PRN Q5MIN PRN SL CP RATING > 11/1308/31/19 16:30 09/01/19 16:29 08/31/19 18:18 Magnesium Sulfate 50 ml @ 25 mls/hr 1X ONCE IV 08/31/19 18:15 08/31/19 20:14 DC 08/31/19 18:18 Insulin Glargine (Lantus Syringe) 12 unit QHS SQ 08/31/19 21:00 08/31/19 22:08 Insulin Human Lispro (HumaLOG) 0-7 UNITS TIDACHC SQ 08/31/19 21:00 08/31/19 22:08 Enoxaparin Sodium (Lovenox 40mg Syringe) 40 mg Q24H SQ 08/31/19 21:00 08/31/19 22:02 Atorvastatin Calcium (Lipitor) 20 mg QHS PO 08/31/19 23:00 08/31/19 23:59 Gabapentin (Neurontin) 300 mg TID PO 08/31/19 23:00 09/01/19 00:01 Pyridostigmine [place] (Mestinon) 60 mg BID PO 08/31/19 23:00 08/31/19 23:58 Tamsulosin HCl (Flomax) 0.4 mg QHS PO 08/31/19 23:00 08/31/19 23:59 Aripiprazole (Abilify) 30 mg QHS PO 08/31/19 23:00 08/31/19 23:58 Mirtazapine (Remeron) 30 mg QHS PO 08/31/19 23:00 08/31/19 23:58 Olanzapine (ZyPREXA) 10 mg QHS PO 08/31/19 23:00 08/31/19 23:58 ALLERGIES ALLERGIES: Coded Allergies: No Known Drug Allergies (Unverified , 12/26/15) ROS Review of System 14 point ROS evaluated with pertinent positives noted per HPI PHYSICAL EXAM General: Alert, Oriented X3, Cooperative, No acute distress HEENT: Atraumatic, Mucous membr. moist/pink Lungs: Clear to auscultation, Normal air movement Heart: Regular rate Abdomen: Soft, Other (LLQ tenderness and epigastric tendereness with palpation; hyperactive bowel sounds to all quads. ) Extremities: No cyanosis, No edema Skin: No breakdown, No significant lesion Neuro: Normal speech, Sensation intact Psych/Mental Status: Mental status NL, Mood NL MUSCULOSKELETAL: Osteoarthritic changes both hands VITALS/I&O VITALS/I&O: Vital Signs Date Time Temp Pulse Resp B/P (MAP) Pulse Ox O2 Delivery O2 Flow Rate FiO2 09/01/19 07:00 99.4 75 18 133/65 (87) 97 Room Air 99.4 I & O 08/31/19 08/31/19 09/01/19 15:00 23:00 07:00 Intake Total 240 ml Output Total 1 ml Balance -1 ml 240 ml LABS Lab: Laboratory Tests Test 08/31/19 17:16 08/31/19 20:50 08/31/19 22:02 09/01/19 00:15 White Blood Count 10.1 x10^3/uL (4.0-11.0) Red Blood Count 4.48 x10^6/uL (4.30-5.70) Hemoglobin 13.4 g/dL (13.0-17.5) Hematocrit 41.2 % (39.0-53.0) Mean Corpuscular Volume 92 fL (79-100) Mean Corpuscular Hemoglobin 30 pg (25-35) Mean Corpuscular Hemoglobin Concent 32 g/dL (31-37) Red Cell Distribution Width 13.1 % (11.5-14.5) Platelet Count 200 x10^3/uL (140-400) Neutrophils (%) (Auto) 84 % (31-73) H Lymphocytes (%) (Auto) 10 % (24-48) L Monocytes (%) (Auto) 6 % (0-9) Eosinophils (%) (Auto) 0 % (0-3) Basophils (%) (Auto) 0 % (0-3) Neutrophils # (Auto) 8.6 x10^3/uL (1.8-7.7) H Lymphocytes # (Auto) 1.0 x10^3/uL (1.0-4.8) Monocytes # (Auto) 0.6 x10^3/uL (0.0-1.1) Eosinophils # (Auto) 0.0 x10^3/uL (0.0-0.7) Basophils # (Auto) 0.0 x10^3/uL (0.0-0.2) Prothrombin Time 13.3 SEC (11.7-14.0) Prothrombin Time INR 1.0 (0.8-1.1) Sodium Level 140 mmol/L (136-145) Potassium Level 4.0 mmol/L (3.5-5.1) Chloride Level 102 mmol/L (98-107) Carbon Dioxide Level 28 mmol/L (21-32) Anion Gap 10 (6-14) Blood Urea Nitrogen 22 mg/dL (8-26) Creatinine 1.1 mg/dL (0.7-1.3) Estimated GFR (Cockcroft-Gault) 82.6 BUN/Creatinine Ratio 20 (6-20) Glucose Level 333 mg/dL (70-99) H Calcium Level 8.8 mg/dL (8.5-10.1) Magnesium Level 1.6 mg/dL (1.8-2.4) L Total Bilirubin 0.6 mg/dL (0.2-1.0) Aspartate Amino Transferase (AST) 11 U/L (15-37) L Alanine Aminotransferase (ALT) 15 U/L (16-63) L Alkaline Phosphatase 79 U/L (46-116) Creatine Kinase 64 U/L (39-308) Troponin I Quantitative < 0.017 ng/mL (0.000-0.055) < 0.017 ng/mL (0.000-0.055) < 0.017 ng/mL (0.000-0.055) AZ-Egq-L-Type Natriuretic Peptide 361 pg/mL (0-124) H Total Protein 7.3 g/dL (6.4-8.2) Albumin 3.4 g/dL (3.4-5.0) Albumin/Globulin Ratio 0.9 (1.0-1.7) L Lipase 31 U/L (73-393) L Glucose (Fingerstick) 377 mg/dL (70-99) H D-Dimer (Maye) 3.89 ug/mlFEU (0.00-0.50) H Test 09/01/19 03:00 09/01/19 07:43 Sodium Level 142 mmol/L (136-145) Potassium Level 3.8 mmol/L (3.5-5.1) Chloride Level 105 mmol/L (98-107) Carbon Dioxide Level 28 mmol/L (21-32) Anion Gap 9 (6-14) Blood Urea Nitrogen 21 mg/dL (8-26) Creatinine 1.0 mg/dL (0.7-1.3) Estimated GFR (Cockcroft-Gault) 92.2 Glucose Level 132 mg/dL (70-99) H Calcium Level 8.9 mg/dL (8.5-10.1) Magnesium Level 2.2 mg/dL (1.8-2.4) Triglycerides Level 78 mg/dL (0-150) Cholesterol Level 138 mg/dL (0-200) LDL Cholesterol, Calculated 69 mg/dL (0-100) VLDL Cholesterol, Calculated 16 mg/dL (0-40) Non-HDL Cholesterol Calculated 85 mg/dL (0-129) HDL Cholesterol 53 mg/dL (40-60) Cholesterol/HDL Ratio 2.6 Thyroid Stimulating Hormone (TSH) 1.004 uIU/mL (0.358-3.74) Glucose (Fingerstick) 92 mg/dL (70-99) Laboratory Tests 08/31/19 17:16 Laboratory Tests 08/31/19 17:16 09/01/19 03:00 ASSESSMENT/PLAN ASSESSMENT/PLAN 1. Syncope with nontraumatic fall: possibly from dehydration with diarrhea and associated medications. No arrhythmia fo far. No orthostasis 2. Atypical chest pain: mainly epigastric, possibly GI 3. Diarrhea/Abd pain: symptoms remain. per PCP. He did mention a new medicine started last week, pt not sure. 4. CAD: CABGx4 in 2014. Clinically stable 5. HTN: controlled 6. HLP: lipids on goal 7. DM2: insulin therapy 8. Hx of myasthenia gravis: on mestinon 9. Hx of LE DVT: unclear if he has a filter 10. Hx of bipolar disorder Recommendations 1. DDIMER elevated. CTA chest pending. 2. TTE, check A1C. 3. Continue home plavix. losartan and lipitor. Unclear why Coreg was discontinued in the past. 4. 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 ONIEL MICHELLE MD 09/01/19 1500: CARDIAC CONSULT ASSESSMENT/PLAN ASSESSMENT/PLAN Pt. seen and examined. 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 59 y.o male with cdiff. Non-cardiac chest pain. Supportive care. Continue tx of cdiff. SITA WELCH APRN Sep 01, 2019 09:35 ONIEL MICHELLE MD Sep 01, 2019 15:00
--- NOTE | 2019-09-01 10:40 | NUR ---
SS following for discharge planning. SS reviewed pt chart. Pt is from home and is currently on room air. SS will continue to follow for discharge planning.
[2019-09-01] MEDS: PYRIDOSTIGMINE BROMIDE 60 MG TABLET PO SCH ×2 (10:43→21:59)
[2019-09-01] MEDS: VENLAFAXINE XR 37.5 MG CAP.ER.24H. PO SCH (10:43)
[2019-09-01] MEDS: PANTOPRAZOLE 40 MG TABLET.DR. PO SCH (10:43)
[2019-09-01] MEDS: CLOPIDOGREL BISULFATE 75 MG TABLET PO SCH (10:44)
[2019-09-01] MEDS: FINASTERIDE 5 MG TABLET. PO SCH (10:44)
[2019-09-01] MEDS: LOSARTAN POTASSIUM 50 MG TABLET. PO SCH (10:44)
[2019-09-01 11:00] VITALS: BP 155/67
[2019-09-01] MEDS: HYDROcodone/APAP 7.5/325MG 1 TAB TABLET PO PRN ×2 (11:58→22:00)
[2019-09-01] MEDS: VANCOMYCIN 125 MG/2.5 ML ORAL SOLUTION. PO SCH ×3 (14:59→21:57)
[2019-09-01 15:00] VITALS: BP 148/68
--- NOTE | 2019-09-01 15:04 | RAD ---
CT ANGIOGRAPHY CHEST History: Chest pain Technique: CT of the chest was performed with contrast. PE protocol. Maximum intensity projection coronal and sagittal reconstructions were performed. Exposure: One or more of the following individualized dose reduction techniques were utilized for this examination: 1. Automated exposure control 2. Adjustment of the mA and/or kV according to patient size 3. Use of iterative reconstruction technique. Comparison: None Findings: Chest: No pulmonary embolism. No aortic dissection or aneurysm. Calcified mediastinal and hilar lymph nodes including calcified right lower lobe granuloma, likely related to prior granulous disease. Mild centrilobular emphysema. No consolidation or pleural effusion. Mild lingular subsegmental atelectasis. Upper abdomen: Chronic atrophy with calcifications, can be seen with chronic pancreatitis. Atheromatous calcifications throughout the aorta. Bones: No pathologic osseous lesions. Impression: 1. No acute intrathoracic pathology. No pulmonary embolism. 2. Mild pulmonary emphysema. 3. Pancreatic atrophy and calcifications, can be seen with sequelae of chronic pancreatitis. Electronically signed by: Greg Padgett DO (09/01/2019 3:01 PM) [facility]
[2019-09-01 20:27] VITALS: BP 124/64
[2019-09-01] MEDS: INSULIN GLARGINE SYRINGE. SQ SCH (21:54)
[2019-09-01] MEDS: LACTOBACILLUS RHAMNOSUS GG 1 CAPSULE. PO SCH (21:57)
[2019-09-01] MEDS: ATORVASTATIN CALCIUM 20 MG TABLET PO SCH (21:59)
[2019-09-01] MEDS: OLANZapine 5 MG TABLET PO SCH (21:59)
[2019-09-01] MEDS: ARIPiprazole 5 MG TABLET PO SCH (21:59)
[2019-09-01] MEDS: PSYLLIUM HUSK (SUGAR FREE) 1 PKT PACKET PO SCH (22:01)
[2019-09-01] MEDS: TAMSULOSIN 0.4 MG CAP.ER.24H. PO SCH (22:01)
[2019-09-01] MEDS: ENOXAPARIN 40 MG/0.4 ML SYRINGE. SQ SCH (22:02)
[2019-09-01] MEDS: MIRTAZAPINE 15 MG TABLET PO SCH (22:02)
[2019-09-01 23:33] VITALS: BP 160/72
[2019-09-02] VITALS (7 sets, daily range): BP systolic 143–184; BP diastolic 60–88
[2019-09-02] MEDS: INSULIN LISPRO 300 UNITS/3 ML VIAL. SQ SCH ×7 (07:30→21:00)
[2019-09-02] MEDS: PANTOPRAZOLE 40 MG TABLET.DR. PO SCH (07:43)
[2019-09-02] MEDS: PYRIDOSTIGMINE BROMIDE 60 MG TABLET PO SCH ×2 (09:25→20:49)
[2019-09-02] MEDS: LACTOBACILLUS RHAMNOSUS GG 1 CAPSULE. PO SCH ×2 (09:25→20:49)
[2019-09-02] MEDS: CLOPIDOGREL BISULFATE 75 MG TABLET PO SCH (09:25)
[2019-09-02] MEDS: GABAPENTIN 300 MG CAPSULE. PO SCH ×3 (09:25→20:49)
[2019-09-02] MEDS: VENLAFAXINE XR 37.5 MG CAP.ER.24H. PO SCH (09:25)
[2019-09-02] MEDS: FINASTERIDE 5 MG TABLET. PO SCH (09:25)
[2019-09-02] MEDS: LOSARTAN POTASSIUM 50 MG TABLET. PO SCH (09:25)
[2019-09-02] MEDS: VANCOMYCIN 125 MG/2.5 ML ORAL SOLUTION. PO SCH ×4 (09:28→20:48)
--- NOTE | 2019-09-02 09:29 | CARD ---
MR#: [id number] Date of Study: 09/02/2019 Ordering Physician: LUCIA MOTTA, Referring Physician: LUCIA MOTTA, Tech: Leida Lopez APPROVED REPORT EXAM: Two-dimensional and M-mode echocardiogram with Doppler and color Doppler. Other Information Quality : AverageHR: 66bpm INDICATION Cardiac Disease: CAD Chest Pain Syncope Surgery/Intervention CABG: Date: 2013 RISK FACTORS Hypertension Hyperlipidemia Diabetes Smoking 2D DIMENSIONS RVDd2.9 (2.9-3.5cm)Left Atrium(2D)3.5 (1.6-4.0cm) IVSd0.9 (0.7-1.1cm)Aortic Root(2D)3.5 (2.0-3.7cm) LVDd4.9 (3.9-5.9cm)LVOT Diameter2.2 (1.8-2.4cm) PWd1.0 (0.7-1.1cm)LVDs2.6 (2.5-4.0cm) FS (%) 47.1 %SV89.0 ml Aortic Valve AoV Peak Navjot.123.8cm/sAoV VTI28.1cm AO Peak GR.6.1mmHgLVOT VTI 14.83cm AO Mean GR.4mmHg Mitral Valve MV E Oasalcaz42.0cm/sMV DECEL WQCM100fq MV A Xhnqfccx88.5cm/sE/A Ratio1.5 TDI Lateral E' P. V11.07cm/sMedial E' P. V5.53cm/s E/Lateral E'7.2E/Medial E'14.5 Tricuspid Valve TR P. Dykugzxq335ye/sRAP CODPAQYV0gxCe TR Peak Gr.45xlUwZSOK57flRq Pulmonary Vein S1 Xyeccgpb85.2cm/sS2 Xkflizuv16.23cm/s D2 Qmazozsf14.2cm/sPVa vrdmmoqt34lsrz LEFT VENTRICLE The left ventricle is normal size. There is normal left ventricular wall thickness. The left ventricu lar systolic function is low normal. The Ejection Fraction is estimated at 50%. There is slight septa l hypokinesis. Transmitral Doppler flow pattern is Grade II-pseudonormal filling dynamics. RIGHT VENTRICLE The right ventricle is normal size. There is normal right ventricular wall thickness. The right ventr icular systolic function is normal. ATRIA The left atrium size is normal. The right atrium size is normal. The interatrial septum is intact wit h no evidence for an atrial septal defect or patent foramen ovale as noted on 2-D or Doppler imaging. AORTIC VALVE The aortic valve is normal in structure and function. Doppler and Color Flow revealed no significant aortic regurgitation. There is no significant aortic valvular stenosis. MITRAL VALVE The mitral valve is normal in structure and function. There is no evidence of mitral valve prolapse. There is no mitral valve stenosis. Doppler and Color Flow revealed no mitral valve regurgitation note d. TRICUSPID VALVE The tricuspid valve is normal in structure and function. Doppler and Color Flow revealed trace tricus pid regurgitation with an estimated PAP of 26 mmHg. There is no tricuspid valve prolapse or vegetatio n. There is no tricuspid valve stenosis. PULMONIC VALVE The pulmonic valve is not well visualized. Doppler and Color Flow revealed no pulmonic valvular regur gitation. GREAT VESSELS The aortic root is normal in size. The IVC is normal in size and collapses >50% with inspiration. PERICARDIAL EFFUSION There is no evidence of significant pericardial effusion. Critical Notification Critical Value: No <Conclusion> The left ventricle is normal size. The left ventricular systolic function is low normal. The Ejection Fraction is estimated at 50%. There is slight septal hypokinesis. Doppler and Color Flow revealed no significant aortic regurgitation. There is no significant aortic valvular stenosis. Doppler and Color Flow revealed no mitral valve regurgitation noted. Doppler and Color Flow revealed trace tricuspid regurgitation with an estimated PAP of 26 mmHg. Signed by : Carlitos Whitt MD Electronically Approved : 09/02/2019 09:28:38
--- NOTE | 2019-09-02 13:50 | PDOC ---
PROGRESS NOTES Chief Complaint Chief Complaint A/P: Chest pain - with strong history, will trend troponins. ASA, NTG helped, will consult cardiology. Syncope - no tachycardia, but does have CP, will r/o VTE with d dimer, CTPA if it is elevated, otherwise will check echo and carotid dopplers. Likely vasovagal from his GI complaints, c difficile Hypomagnesemia - 1.6, will replace IV. Check in AM Abdominal pain with diarrhea - POSITIVE FOR C. DIFFICILE. oral vancomycin QID 125mg for 10 days Coronary artery disease status post CABG - stable on meds Diabetes - with hyperglycemia, will place on basal bolus plus regimen for insulin Hypertension - cont losartan Dyslipidemia - cont statin Smoking - offered nicotine patch Depression - he has f/u at [facility], is on a number of medications, this could play a role in his syncope as well Myasthenia gravis - cont mestinon FEN - ADA cardiac diet PPX - lovenox FULL CODE Dispo - CVC for high risk cardiac patient with chest pain History of Present Illness History of Present Illness Mr Mims is a 59 year old with history of coronary artery disease status post CABG, diabetes, hypertension, dyslipidemia, smoking, Depression, and myasthenia gravis who presents with complaining of chest pain and side pain. Patient states he has had intermittent episodes of chest pain for the last 1 week and had pain in the substernal area since yesterday. Patient states he had a syncopal episode yesterday and had a fall without head injury and his friend has insisted he come to the ED. Patient complaining of increasing pain since his fall as a sharp pain with radiation to his back and associated with shortness of breath, nausea, dizziness, palpitation. Patient states he had more than 10 episodes of diarrhea yesterday and more than 10 episodes of nonbloody diarrhea today and complaining of left lower quadrant cramping pain and rated his pain 10 over 10. Patient denies taking aspirin or nitroglycerin today. Labs significant for glucose of 333, otherwise negative troponin. EKG - normal sinus rhythm at rate of 77, left atrial abnormality, poor R-wave progress in anteroseptal leads, no acute ST and T-wave elevation. CXR no acute abnormalities. His orthostatics were negative in ED on my examination. Due to his high risk cardiac history with CABG and his symptoms admitted for further workup. 09/01: Still with chest discomfort. d dimer is elevated. Will go forward with CTPA to r/o PE as cause of his syncopal episode. CTPA negative. C. difficile positive. A1c 9 A1c 9. Overnight his abdominal symptoms improved after starting c. difficile susan atment. Carotid dopplers clear. Blood glucose improved. He slept well. Diarrhea better with vancomycin Vitals Vitals Vital Signs Date Time Temp Pulse Resp B/P (MAP) Pulse Ox O2 Delivery O2 Flow Rate FiO2 09/02/19 11:00 97.9 66 18 151/73 (99) 97 Room Air 97.9 Physical Exam General: Alert, Oriented X3, Cooperative, No acute distress Heart: Regular rate Abdomen: Soft, Other (LLQ tenderness and epigastric tendereness with palpation; hyperactive bowel sounds to all quads. ) Extremities: No cyanosis, No edema Skin: No breakdown, No significant lesion Labs LABS Laboratory Tests Test 09/01/19 16:59 09/01/19 20:29 09/02/19 08:58 09/02/19 12:34 Glucose (Fingerstick) 187 mg/dL (70-99) 246 mg/dL (70-99) 209 mg/dL (70-99) 165 mg/dL (70-99) Assessment and Plan Assessmemt and Plan Problems Medical Problems: (1) Acute chest pain Status: Acute (2) Diarrhea Status: Acute (3) Hyperglycemia Status: Acute (4) Hypomagnesemia Status: Acute (5) Left lower quadrant pain Status: Acute (6) Syncope Status: Acute Comment Review of Relevant I have reviewed the following items kelechi (where applicable) has been applied. Labs Laboratory Tests Test 08/31/19 17:16 08/31/19 20:50 08/31/19 22:02 09/01/19 00:15 White Blood Count 10.1 x10^3/uL (4.0-11.0) Red Blood Count 4.48 x10^6/uL (4.30-5.70) Hemoglobin 13.4 g/dL (13.0-17.5) Hematocrit 41.2 % (39.0-53.0) Mean Corpuscular Volume 92 fL (79-100) Mean Corpuscular Hemoglobin 30 pg (25-35) Mean Corpuscular Hemoglobin Concent 32 g/dL (31-37) Red Cell Distribution Width 13.1 % (11.5-14.5) Platelet Count 200 x10^3/uL (140-400) Neutrophils (%) (Auto) 84 % (31-73) Lymphocytes (%) (Auto) 10 % (24-48) Monocytes (%) (Auto) 6 % (0-9) Eosinophils (%) (Auto) 0 % (0-3) Basophils (%) (Auto) 0 % (0-3) Neutrophils # (Auto) 8.6 x10^3/uL (1.8-7.7) Lymphocytes # (Auto) 1.0 x10^3/uL (1.0-4.8) Monocytes # (Auto) 0.6 x10^3/uL (0.0-1.1) Eosinophils # (Auto) 0.0 x10^3/uL (0.0-0.7) Basophils # (Auto) 0.0 x10^3/uL (0.0-0.2) Prothrombin Time 13.3 SEC (11.7-14.0) Prothromb Time International Ratio 1.0 (0.8-1.1) Sodium Level 140 mmol/L (136-145) Potassium Level 4.0 mmol/L (3.5-5.1) Chloride Level 102 mmol/L (98-107) Carbon Dioxide Level 28 mmol/L (21-32) Anion Gap 10 (6-14) Blood Urea Nitrogen 22 mg/dL (8-26) Creatinine 1.1 mg/dL (0.7-1.3) Estimated GFR (Cockcroft-Gault) 82.6 BUN/Creatinine Ratio 20 (6-20) Glucose Level 333 mg/dL (70-99) Calcium Level 8.8 mg/dL (8.5-10.1) Magnesium Level 1.6 mg/dL (1.8-2.4) Total Bilirubin 0.6 mg/dL (0.2-1.0) Aspartate Amino Transf (AST/SGOT) 11 U/L (15-37) Alanine Aminotransferase (ALT/SGPT) 15 U/L (16-63) Alkaline Phosphatase 79 U/L (46-116) Creatine Kinase 64 U/L (39-308) Troponin I Quantitative < 0.017 ng/mL (0.000-0.055) < 0.017 ng/mL (0.000-0.055) < 0.017 ng/mL (0.000-0.055) VS-Nwm-Y-Type Natriuretic Peptide 361 pg/mL (0-124) Total Protein 7.3 g/dL (6.4-8.2) Albumin 3.4 g/dL (3.4-5.0) Albumin/Globulin Ratio 0.9 (1.0-1.7) Lipase 31 U/L (73-393) Glucose (Fingerstick) 377 mg/dL (70-99) D-Dimer (Maye) 3.89 ug/mlFEU (0.00-0.50) Test 09/01/19 00:55 09/01/19 03:00 09/01/19 07:43 09/01/19 12:28 Clostridium difficile Toxin B Gene Positive (Negative) Sodium Level 142 mmol/L (136-145) Potassium Level 3.8 mmol/L (3.5-5.1) Chloride Level 105 mmol/L (98-107) Carbon Dioxide Level 28 mmol/L (21-32) Anion Gap 9 (6-14) Blood Urea Nitrogen 21 mg/dL (8-26) Creatinine 1.0 mg/dL (0.7-1.3) Estimated GFR (Cockcroft-Gault) 92.2 Glucose Level 132 mg/dL (70-99) Hemoglobin A1c 9.0 % (4.8-5.6) Calcium Level 8.9 mg/dL (8.5-10.1) Magnesium Level 2.2 mg/dL (1.8-2.4) Triglycerides Level 78 mg/dL (0-150) Cholesterol Level 138 mg/dL (0-200) LDL Cholesterol, Calculated 69 mg/dL (0-100) VLDL Cholesterol, Calculated 16 mg/dL (0-40) Non-HDL Cholesterol Calculated 85 mg/dL (0-129) HDL Cholesterol 53 mg/dL (40-60) Cholesterol/HDL Ratio 2.6 Thyroid Stimulating Hormone (TSH) 1.004 uIU/mL (0.358-3.74) Glucose (Fingerstick) 92 mg/dL (70-99) 198 mg/dL (70-99) Test 09/01/19 16:59 09/01/19 20:29 09/02/19 08:58 09/02/19 12:34 Glucose (Fingerstick) 187 mg/dL (70-99) 246 mg/dL (70-99) 209 mg/dL (70-99) 165 mg/dL (70-99) Laboratory Tests Test 09/01/19 16:59 09/01/19 20:29 09/02/19 08:58 09/02/19 12:34 Glucose (Fingerstick) 187 mg/dL (70-99) 246 mg/dL (70-99) 209 mg/dL (70-99) 165 mg/dL (70-99) Medications Current Medications Aspirin (Children'S Aspirin) 324 mg 1X ONCE PO Last administered on 08/31/19 18:17; Start 08/31/19 at 16:30; Stop 08/31/19 at 16:35; Status DC Nitroglycerin (Nitrostat) 0.4 mg PRN Q5MIN PRN SL CP RATING > 1/10 Last admini stered on 08/31/19at 18:18; Start 08/31/19 at 16:30; Stop 09/01/19 at 16:29; Status DC Magnesium Sulfate 50 ml @ 25 mls/hr 1X ONCE IV Last administered on 08/31/19at 18:18; Start 08/31/19 at 18:15; Stop 08/31/19 at 20:14; Status DC Insulin Glargine (Lantus Syringe) 12 unit QHS SQ Last administered on 09/01/19at 21:54; Start 08/31/19 at 21:00 Insulin Human Lispro (HumaLOG) 0-7 UNITS TIDACHC SQ Last administered on 09/01/19at 22:14; Start 08/31/19 at 21:00 Dextrose (Dextrose 50%-Water Syringe) 12.5 gm PRN Q15MIN PRN IV SEE COMMENTS; Start 08/31/19 at 20:45 Enoxaparin Sodium (Lovenox 40mg Syringe) 40 mg Q24H SQ Last administered on 09/01/19at 22:02; Start 08/31/19 at 21:00 Atorvastatin Calcium (Lipitor) 20 mg QHS PO Last administered on 09/01/19at 21:59; Start 08/31/19 at 23:00 Clopidogrel Bisulfate (Plavix) 75 mg DAILY PO Last administered on 09/02/19 09:25; Start 09/01/19 at 09:00 Diazepam (Valium) 10 mg PRN DAILY PRN PO ANXIETY; Start 08/31/19 at 22:45 Finasteride (Proscar) 5 mg DAILY PO Last administered on 09/02/19 09:25; Start 09/01/19 at 09:00 Gabapentin (Neurontin) 300 mg TID PO Last administered on 09/02/19 09:25; Start 08/31/19 at 23:00 Acetaminophen/ Hydrocodone Bitart (Lortab 7.5/325) 1 tab PRN TID PRN PO SEVERE PAIN 7-10 Last administered on 09/01/19 22:00; Start 08/31/19 at 22:30 Losartan Potassium (Cozaar) 50 mg DAILY PO Last administered on 09/02/19 09:25; Start 09/01/19 at 09:00 Pyridostigmine [place] (Mestinon) 60 mg BID PO Last administered on 09/02/19 09:25; Start 08/31/19 at 23:00 Tamsulosin HCl (Flomax) 0.4 mg QHS PO Last administered on 09/01/19 22:01; Start 08/31/19 at 23:00 Aripiprazole (Abilify) 30 mg QHS PO Last administered on 09/01/19 21:59; Start 08/31/19 at 23:00 Insulin Human Lispro (HumaLOG) 12 units TIDWMEALS SQ Last administered on 09/02/19 13:15; Start 09/01/19 at 08:00 Mirtazapine (Remeron) 30 mg QHS PO Last administered on 09/01/19 22:02; Start 08/31/19 at 23:00 Olanzapine (ZyPREXA) 10 mg QHS PO Last administered on 09/01/19 21:59; Start 08/31/19 at 23:00 Pantoprazole Sodium (Protonix) 40 mg DAILYAC PO Last administered on 09/02/19 07:43; Start 09/01/19 at 07:30 Venlafaxine HCl (Effexor Xr) 75 mg DAILY PO Last administered on 09/02/19 09:25; Start 09/01/19 at 09:00 Polyethylene Glycol (miraLAX PACKET) 17 gm QHS PO ; Start 08/31/19 at 23:00; Stop 08/31/19 at 22:44; Status DC Psyllium Hydrophilic Mucilloid (Metamucil Fiber Packet) 1 pkt QHS PO Last administered on 09/01/19at 22:01; Start 08/31/19 at 23:00 Senna/Docusate Sodium (Senna Plus) 1 tab PRN BID PRN PO CONSTIPATION 1ST CHOICE; Start 08/31/19 at 22:45 Polyethylene Glycol (miraLAX PACKET) 17 gm PRN DAILY PRN PO constipation 2ND CHOICE; Start 08/31/19 at 22:45 Iohexol (Omnipaque 350 Mg/ml) 100 ml 1X ONCE IV Last administered on 09/01/19at 09:00; Start 09/01/19 at 09:00; Stop 09/01/19 at 09:01; Status DC Info (CONTRAST GIVEN -- Rx MONITORING) 1 each PRN DAILY PRN MC SEE COMMENTS; Start 09/01/19 at 09:15; Stop 09/03/19 at 09:14 Vancomycin HCl (Vancomycin Oral Solution) 125 mg [id number] PO Last administered on 09/02/19at 09:28; Start 09/01/19 at 14:30 Lactobacillus Rhamnosus (Culturelle) 1 cap BID PO Last administered on 09/02/19at 09:25; Start 09/01/19 at 21:00 Active Scripts Active Reported Flomax (Tamsulosin Hcl) 0.4 Mg Cap.er.24h 0.4 Mg PO QHS 30 Days Finasteride 5 Mg Tablet 5 Mg PO DAILY 30 Days Clopidogrel (Clopidogrel Bisulfate) 75 Mg Tablet 75 Mg PO DAILY 30 Days Gabapentin 300 Mg Capsule 300 Mg PO TID 30 Days Atorvastatin Calcium 20 Mg Tablet 20 Mg PO QHS 30 Days Losartan Potassium 50 Mg Tablet 50 Mg PO DAILY 30 Days Omeprazole 40 Mg Capsule.dr 40 Mg PO DAILY 30 Days Aripiprazole 30 Mg Tablet 30 Mg PO QHS 30 Days Venlafaxine Hcl Er (Venlafaxine Hcl) 75 Mg Cap.er.24h 75 Mg PO DAILY 30 Days Olanzapine 10 Mg Tablet 10 Mg PO QHS 30 Days Novolog Flexpen (Insulin Aspart) 100 Unit/1 Ml Insuln.pen 12 Units SQ TIDAC 30 Days Hydrocodone-Acetamin 7.5-325 (Hydrocodone/Acetaminophen) 1 Each Tablet 1 Tab PO PRN TID PRN 30 Days Mirtazapine 30 Mg Tablet 30 Mg PO QHS 30 Days Pyridostigmine [place] 60 Mg Tablet 60 Mg PO BID 30 Days Diazepam 10 Mg Tablet 10 Mg PO PRN DAILY PRN 30 Days Vitals/I & O Vital Sign - Last 24 Hours 09/01/19 09/01/19 09/01/19 09/01/19 15:00 19:00 20:00 20:27 Temp 98.4 98.3 98.4 98.3 Pulse 63 70 Resp 18 16 B/P (MAP) 148/68 (94) 124/64 (84) Pulse Ox 95 97 O2 Delivery Room Air Room Air Room Air Room Air 09/01/19 09/01/19 09/01/19 09/02/19 22:00 23:00 23:33 03:46 Temp 98.6 97.5 98.6 97.5 Pulse 80 57 Resp 18 18 16 16 B/P (MAP) 160/72 (101) 151/60 (90) Pulse Ox 97 95 95 92 O2 Delivery Room Air Room Air Room Air Room Air 09/02/19 09/02/19 09/02/19 09/02/19 07:00 07:58 09:25 11:00 Temp 97.6 97.9 97.6 97.9 Pulse 63 63 66 Resp 18 18 B/P (MAP) 145/67 (93) 145/67 151/73 (99) Pulse Ox 96 97 O2 Delivery Room Air Room Air Room Air Intake and Output0 09/01/19 09/01/19 09/02/19 15:00 23:00 07:00 Intake Total 200 ml 420 ml 460 ml Balance 200 ml 420 ml 460 ml Nutrition Consultation Dietary Evaluation: Recommendations by RD: Increase Calorie Intake, Protein supplementation Comments: REC cardiac/ADA diet per pmhx REC Glucerna (vanilla) w/dinner, can add to more meals it pt likes it Expected Outcomes/Goals: PO intake to meet >75% est needs Interpretation of weight loss: >7.5% in 3 months Malnutrition Findings: Weight Status: Underweight LUCIA MOTTA MD Sep 02, 2019 13:50
[2019-09-02] MEDS: ENOXAPARIN 40 MG/0.4 ML SYRINGE. SQ SCH (20:48)
[2019-09-02] MEDS: TAMSULOSIN 0.4 MG CAP.ER.24H. PO SCH (20:49)
[2019-09-02] MEDS: ATORVASTATIN CALCIUM 20 MG TABLET PO SCH (20:49)
[2019-09-02] MEDS: MIRTAZAPINE 15 MG TABLET PO SCH (20:49)
[2019-09-02] MEDS: OLANZapine 5 MG TABLET PO SCH (20:49)
[2019-09-02] MEDS: ARIPiprazole 5 MG TABLET PO SCH (20:49)
[2019-09-02] MEDS: PSYLLIUM HUSK (SUGAR FREE) 1 PKT PACKET PO SCH (20:52)
[2019-09-02] MEDS: INSULIN GLARGINE SYRINGE. SQ SCH (20:59)
--- NOTE | 2019-09-02 21:06 | NUR ---
Patient had a previous low blood sugar this evening so is refusing his HS dose of humalog. Lantus was administered.
[2019-09-03 00:44] VITALS: BP 151/68
[2019-09-03 02:10] VITALS: BP 174/79
[2019-09-03 07:00] VITALS: BP 151/77
--- NOTE | 2019-09-03 08:14 | PDOC ---
PROGRESS NOTES Chief Complaint Chief Complaint A/P: Chest pain - with strong history, will trend troponins. ASA, NTG helped, will consult cardiology. Syncope - no tachycardia, but does have CP, will r/o VTE with d dimer, CTPA if it is elevated, otherwise will check echo and carotid dopplers. Likely vasovagal from his GI complaints, c difficile Hypomagnesemia - 1.6, will replace IV. Check in AM Abdominal pain with diarrhea - POSITIVE FOR C. DIFFICILE. oral vancomycin QID 125mg for 10 days Coronary artery disease status post CABG - stable on meds Diabetes - with hyperglycemia, will place on basal bolus plus regimen for insulin Hypertension - cont losartan Dyslipidemia - cont statin Smoking - offered nicotine patch Depression - he has f/u at [facility], is on a number of medications, this could play a role in his syncope as well Myasthenia gravis - cont mestinon FEN - ADA cardiac diet PPX - lovenox FULL CODE Dispo - CVC for high risk cardiac patient with chest pain The left ventricle is normal size. The left ventricular systolic function is low normal. The Ejection Fraction is estimated at 50%. There is slight septal hypokinesis. Doppler and Color Flow revealed no significant aortic regurgitation. There is no significant aortic valvular stenosis. Doppler and Color Flow revealed no mitral valve regurgitation noted. Doppler and Color Flow revealed trace tricuspid regurgitation with an estimated PAP of 26 mmHg. History of Present Illness History of Present Illness Mr Mims is a 59 year old with history of coronary artery disease status post CABG, diabetes, hypertension, dyslipidemia, smoking, Depression, and myasthenia gravis who presents with complaining of chest pain and side pain. Patient states he has had intermittent episodes of chest pain for the last 1 week and had pain in the substernal area since yesterday. Patient states he had a syncopal episode yesterday and had a fall without head injury and his friend has insisted he come to the ED. Patient complaining of increasing pain since his fall as a sharp pain with radiation to his back and associated with shortness of breath, nausea, dizziness, palpitation. Patient states he had more than 10 episodes of diarrhea yesterday and more than 10 episodes of nonbloody diarrhea today and complaining of left lower quadrant cramping pain and rated his pain 10 over 10. Patient denies taking aspirin or nitroglycerin today. Labs significant for glucose of 333, otherwise negative troponin. EKG - normal sinus rhythm at rate of 77, left atrial abnormality, poor R-wave progress in anteroseptal leads, no acute ST and T-wave elevation. CXR no acute abnormalities. His orthostatics were negative in ED on my examination. Due to his high risk cardiac history with CABG and his symptoms admitted for further workup. 09/01: Still with chest discomfort. d dimer is elevated. Will go forward with CTPA to r/o PE as cause of his syncopal episode. CTPA negative. C. difficile positive. A1c 9 A1c 9. Overnight his abdominal symptoms improved after starting c. difficile treatment. Carotid dopplers clear. Blood glucose improved. He slept well. Diarrhea better with vancomycin Vitals Vitals Vital Signs Date Time Temp Pulse Resp B/P (MAP) Pulse Ox O2 Delivery O2 Flow Rate FiO2 09/03/19 02:10 97.5 82 16 174/79 (110) 98 Room Air 97.5 Physical Exam General: Alert, Oriented X3, Cooperative, No acute distress Heart: Regular rate Abdomen: Soft, Other (LLQ tenderness and epigastric tendereness with palpation; hyperactive bowel sounds to all quads. ) Extremities: No cyanosis, No edema Skin: No breakdown, No significant lesion Labs LABS Laboratory Tests Test 09/02/19 08:58 09/02/19 12:34 09/02/19 17:18 09/02/19 17:46 Glucose (Fingerstick) 209 mg/dL (70-99) 165 mg/dL (70-99) 59 mg/dL (70-99) 102 mg/dL (70-99) Test 09/02/19 20:53 09/03/19 08:05 Glucose (Fingerstick) 319 mg/dL (70-99) 285 mg/dL (70-99) Assessment and Plan Assessmemt and Plan Problems Medical Problems: (1) Acute chest pain Status: Acute (2) Diarrhea Status: Acute (3) Hyperglycemia Status: Acute (4) Hypomagnesemia Status: Acute (5) Left lower quadrant pain Status: Acute (6) Syncope Status: Acute Comment Review of Relevant I have reviewed the following items kelechi (where applicable) has been applied. Labs Laboratory Tests Test 09/01/19 12:28 09/01/19 16:59 09/01/19 20:29 09/02/19 08:58 Glucose (Fingerstick) 198 mg/dL (70-99) 187 mg/dL (70-99) 246 mg/dL (70-99) 209 mg/dL (70-99) Test 09/02/19 12:34 09/02/19 17:18 09/02/19 17:46 09/02/19 20:53 Glucose (Fingerstick) 165 mg/dL (70-99) 59 mg/dL (70-99) 102 mg/dL (70-99) 319 mg/dL (70-99) Test 09/03/19 08:05 Glucose (Fingerstick) 285 mg/dL (70-99) Laboratory Tests Test 09/02/19 08:58 09/02/19 12:34 09/02/19 17:18 09/02/19 17:46 Glucose (Fingerstick) 209 mg/dL (70-99) 165 mg/dL (70-99) 59 mg/dL (70-99) 102 mg/dL (70-99) Test 09/02/19 20:53 09/03/19 08:05 Glucose (Fingerstick) 319 mg/dL (70-99) 285 mg/dL (70-99) Medications Current Medications Aspirin (Children'S Aspirin) 324 mg 1X ONCE PO Last administered on 08/31/19at 18:17; Start 08/31/19 at 16:30; Stop 08/31/19 at 16:35; Status DC Nitroglycerin (Nitrostat) 0.4 mg PRN Q5MIN PRN SL CP RATING > 1/10 Last administered on 08/31/19at 18:18; Start 08/31/19 at 16:30; Stop 09/01/19 at 16:29; Status DC Magnesium Sulfate 50 ml @ 25 mls/hr 1X ONCE IV Last administered on 08/31/19at 18:18; Start 08/31/19 at 18:15; Stop 08/31/19 at 20:14; Status DC Insulin Glargine (Lantus Syringe) 12 unit QHS SQ Last administered on 09/02/19at 20:59; Start 08/31/19 at 21:00 Insulin Human Lispro (HumaLOG) 0-7 UNITS TIDACHC SQ Last administered on 09/01/19at 22:14; Start 08/31/19 at 21:00 Dextrose (Dextrose 50%-Water Syringe) 12.5 gm PRN Q15MIN PRN IV SEE COMMENTS; Start 08/31/19 at 20:45 Enoxaparin Sodium (Lovenox 40mg Syringe) 40 mg Q24H SQ Last administered on 09/02/19 20:48; Start 08/31/19 at 21:00 Atorvastatin Calcium (Lipitor) 20 mg QHS PO Last administered on 09/02/19 20:49; Start 08/31/19 at 23:00 Clopidogrel Bisulfate (Plavix) 75 mg DAILY PO Last administered on 09/02/19 09:25; Start 09/01/19 at 09:00 Diazepam (Valium) 10 mg PRN DAILY PRN PO ANXIETY; Start 08/31/19 at 22:45 Finasteride (Proscar) 5 mg DAILY PO Last administered on 09/02/19 09:25; Start 09/01/19 at 09:00 Gabapentin (Neurontin) 300 mg TID PO Last administered on 09/02/19 20:49; Start 08/31/19 at 23:00 Acetaminophen/ Hydrocodone Bitart (Lortab 7.5/325) 1 tab PRN TID PRN PO SEVERE PAIN 7-10 Last administered on 09/01/19 22:00; Start 08/31/19 at 22:30 Losartan Potassium (Cozaar) 50 mg DAILY PO Last administered on 09/02/19 0 9:25; Start 09/01/19 at 09:00 Pyridostigmine [place] (Mestinon) 60 mg BID PO Last administered on 09/02/19 20:49; Start 08/31/19 at 23:00 Tamsulosin HCl (Flomax) 0.4 mg QHS PO Last administered on 09/02/19 20:49; Start 08/31/19 at 23:00 Aripiprazole (Abilify) 30 mg QHS PO Last administered on 09/02/19 20:49; Start 08/31/19 at 23:00 Insulin Human Lispro (HumaLOG) 12 units TIDWMEALS SQ Last administered on 09/02/19 13:15; Start 09/01/19 at 08:00 Mirtazapine (Remeron) 30 mg QHS PO Last administered on 09/02/19 20:49; Start 08/31/19 at 23:00 Olanzapine (ZyPREXA) 10 mg QHS PO Last administered on 09/02/19 20:49; Start 08/31/19 at 23:00 Pantoprazole Sodium (Protonix) 40 mg DAILYAC PO Last administered on 09/02/19 07:43; Start 09/01/19 at 07:30 Venlafaxine HCl (Effexor Xr) 75 mg DAILY PO Last administered on 09/02/19 09:25; Start 09/01/19 at 09:00 Polyethylene Glycol (miraLAX PACKET) 17 gm QHS PO ; Start 08/31/19 at 23:00; Stop 08/31/19 at 22:44; Status DC Psyllium Hydrophilic Mucilloid (Metamucil Fiber Packet) 1 pkt QHS PO Last administered on 09/02/19 20:52; Start 08/31/19 at 23:00 Senna/Docusate Sodium (Senna Plus) 1 tab PRN BID PRN PO CONSTIPATION 1ST CHOICE; Start 08/31/19 at 22:45 Polyethylene Glycol (miraLAX PACKET) 17 gm PRN DAILY PRN PO constipation 2ND CHOICE; Start 08/31/19 at 22:45 Iohexol (Omnipaque 350 Mg/ml) 100 ml 1X ONCE IV Last administered on 09/01/19 09:00; Start 09/01/19 at 09:00; Stop 09/01/19 at 09:01; Status DC Info (CONTRAST GIVEN -- Rx MONITORING) 1 each PRN DAILY PRN MC SEE COMMENTS; Start 09/01/19 at 09:15; Stop 09/03/19 at 09:14 Vancomycin HCl (Vancomycin Oral Solution) 125 mg [id number] PO Last administered on 09/02/19 20:48; Start 09/01/19 at 14:30 Lactobacillus Rhamnosus (Culturelle) 1 cap BID PO Last administered on 09/02/19 20:49; Start 09/01/19 at 21:00 Active Scripts Active Reported Flomax (Tamsulosin Hcl) 0.4 Mg Cap.er.24h 0.4 Mg PO QHS 30 Days Finasteride 5 Mg Tablet 5 Mg PO DAILY 30 Days Clopidogrel (Clopidogrel Bisulfate) 75 Mg Tablet 75 Mg PO DAILY 30 Days Gabapentin 300 Mg Capsule 300 Mg PO TID 30 Days Atorvastatin Calcium 20 Mg Tablet 20 Mg PO QHS 30 Days Losartan Potassium 50 Mg Tablet 50 Mg PO DAILY 30 Days Omeprazole 40 Mg Capsule.dr 40 Mg PO DAILY 30 Days Aripiprazole 30 Mg Tablet 30 Mg PO QHS 30 Days Venlafaxine Hcl Er (Venlafaxine Hcl) 75 Mg Cap.er.24h 75 Mg PO DAILY 30 Days Olanzapine 10 Mg Tablet 10 Mg PO QHS 30 Days Novolog Flexpen (Insulin Aspart) 100 Unit/1 Ml Insuln.pen 12 Units SQ TIDAC 30 Days Hydrocodone-Acetamin 7.5-325 (Hydrocodone/Acetaminophen) 1 Each Tablet 1 Tab PO PRN TID PRN 30 Days Mirtazapine 30 Mg Tablet 30 Mg PO QHS 30 Days Pyridostigmine [place] 60 Mg Tablet 60 Mg PO BID 30 Days Diazepam 10 Mg Tablet 10 Mg PO PRN DAILY PRN 30 Days Vitals/I & O Vital Sign - Last 24 Hours 09/02/19 09/02/19 09/02/19 09/02/19 09:25 11:00 15:00 19:57 Temp 97.9 98.9 98.0 97.9 98.9 98.0 Pulse 63 66 70 96 Resp 18 18 16 B/P (MAP) 145/67 151/73 (99) 143/60 (87) 169/73 (105) Pulse Ox 97 97 97 O2 Delivery Room Air Room Air Room Air 09/02/19 09/02/19 09/03/19 09/03/19 20:00 22:36 00:44 02:10 Temp 98.0 97.5 98.0 97.5 Pulse 67 67 82 Resp 16 16 B/P (MAP) 184/88 (120) 151/68 (95) 174/79 (110) Pulse Ox 100 100 98 O2 Delivery Room Air Room Air Room Air Room Air Intake and Output 09/02/19 09/02/19 09/03/19 15:00 23:00 07:00 Intake Total 380 ml 240 ml 640 ml Balance 380 ml 240 ml 640 ml Nutrition Consultation Dietary Evaluation: Recommendations by RD: Increase Calorie Intake, Protein supplementation Comments: REC cardiac/ADA diet per pmhx REC Glucerna (vanilla) w/dinner, can add to more meals it pt likes it Expected Outcomes/Goals: PO intake to meet >75% est needs Interpretation of weight loss: >7.5% in 3 months Malnutrition Findings: Weight Status: Underweight LUCIA MOTTA MD Sep 03, 2019 08:14
[2019-09-03] MEDS: INSULIN LISPRO 300 UNITS/3 ML VIAL. SQ SCH ×4 (08:15→12:00)
[2019-09-03] MEDS: VENLAFAXINE XR 37.5 MG CAP.ER.24H. PO SCH (08:26)
[2019-09-03] MEDS: GABAPENTIN 300 MG CAPSULE. PO SCH ×2 (08:26→15:01)
[2019-09-03] MEDS: CLOPIDOGREL BISULFATE 75 MG TABLET PO SCH (08:27)
[2019-09-03] MEDS: LOSARTAN POTASSIUM 50 MG TABLET. PO SCH (08:27)
[2019-09-03] MEDS: PANTOPRAZOLE 40 MG TABLET.DR. PO SCH (08:28)
[2019-09-03] MEDS: PYRIDOSTIGMINE BROMIDE 60 MG TABLET PO SCH (08:28)
[2019-09-03] MEDS: FINASTERIDE 5 MG TABLET. PO SCH (08:28)
[2019-09-03] MEDS: LACTOBACILLUS RHAMNOSUS GG 1 CAPSULE. PO SCH (08:28)
[2019-09-03] MEDS: VANCOMYCIN 125 MG/2.5 ML ORAL SOLUTION. PO SCH ×2 (08:29→12:58)
--- NOTE | 2019-09-03 09:37 | NUR ---
IP:Pt is C.diff + requiring contact plus precautions using brown sign.
[2019-09-03 11:16] VITALS: BP 160/83
[2019-09-03 13:57] LABS: BILIRUBIN,URINE NEGATIVE (NEG); CLARITY,URINE CLEAR; COLOR,URINE AMBER; NITRITE,URINE NEGATIVE (NEG); PH,URINE 5.5; PROTEIN,URINE >=300 mg/dL (NEG-TRACE); UROBILINOGEN,URINE 0.2 mg/dL (0.2 mg/dL)
[2019-09-03 14:04] LABS: BACTERIA,URINE 0 /HPF (0-FEW); SQUAMOUS EPITHELIAL CELL,UR FEW /LPF; WBC,URINE 0 /HPF (0-4)
[2019-09-03] MEDS ORDERED: VANC500V PO (14:34)
--- NOTE | 2019-09-03 14:37 | SNU/HH DC ---
DISCHARGE WITH HOME HEALTH DISCHARGE INFORMATION: Discharge Date: Sep 03, 2019 Final Diagnosis: Problems Medical Problems: (1) Acute chest pain Status: Acute (2) Diarrhea Status: Acute (3) Hyperglycemia Status: Acute (4) Hypomagnesemia Status: Acute (5) Left lower quadrant pain Status: Acute (6) Syncope Status: Acute Condition on Discharge: Stable CODE STATUS: Code Status: Full HOME HEALTH: Face to Face: I certify this patient is under my care and that I, or a nurse practitioner or physician's tutoring assistant working with me, had a face to face encounter that meets the physician face to face encounter requirements with this patient on 09/03/19. Medical Complications: DM Custodial For: Assess & Educate Safety RN For Eval/Treatment: Yes Home Health Aide For: Self-care MOBILE ENGINEER For: Community Resources Pt Meets Homebound Status: Extreme weakness w/ amb., Limited distance walking, Psychological condition POST DISCHARGE ORDERS: Activity Instructions for Disc: No restrictions Weight Bearing Status after Di: No restrictions DIET AFTER DISCHARGE: ADA CHECKS AFTER DISCHARGE: Checks after discharge: Check blood press - daily, Check blood sugar, ac/hs, Weigh Yourself Daily CERTIFICATION STATEMENT: Certification Statement: Certification Statement: Based on the above finding, I certify that this patient is confined to the home and needs intermittent prison care, physical therapy and/or speech therapy, or continues to need occupational therapy.~ This patient is under my care, and I have initiated the establishment of the plan of care.~ This patient will be followed by myself or a community physician who will periodically review the plan of care. Home Meds Active Scripts Vancomycin Hcl (VANCOMYCIN HCL) 500 Mg Vial, 125 MG PO [id number] for C. difficile diarrhea for 8 Days, #32 EACH Prov:LUCIA MOTTA MD 09/03/19 Reported Medications Tamsulosin Hcl (FLOMAX) 0.4 Mg Cap.er.24h, 0.4 MG PO QHS for BPH for 30 Days, #30 08/31/19 Finasteride (FINASTERIDE) 5 Mg Tablet, 5 MG PO DAILY for BPH for 30 Days, #30 08/31/19 Clopidogrel Bisulfate (CLOPIDOGREL) 75 Mg Tablet, 75 MG PO DAILY for CAD for 30 Days, #30 08/31/19 Gabapentin (Gabapentin) 300 Mg Capsule, 300 MG PO TID for DM for 30 Days, #90 08/31/19 Atorvastatin Calcium (ATORVASTATIN CALCIUM) 20 Mg Tablet, 20 MG PO QHS for hld for 30 Days, #30 08/31/19 Losartan Potassium (Losartan Potassium) 50 Mg Tablet, 50 MG PO DAILY for dm2 for 30 Days, #30 08/31/19 Omeprazole (OMEPRAZOLE) 40 Mg Capsule.dr, 40 MG PO DAILY for GERD for 30 Days, #30 08/31/19 Aripiprazole (Aripiprazole) 30 Mg Tablet, 30 MG PO QHS for mood for 30 Days, #30 08/31/19 Venlafaxine Hcl (VENLAFAXINE HCL ER) 75 Mg Cap.er.24h, 75 MG PO DAILY for mood for 30 Days, #30 08/31/19 Olanzapine (OLANZAPINE) 10 Mg Tablet, 10 MG PO QHS for Mood for 30 Days, #30 08/31/19 Insulin Aspart (NOVOLOG FLEXPEN) 100 Unit/1 Ml Insuln.pen, 12 UNITS SQ TIDAC for DM for 30 Days, #1 08/31/19 Hydrocodone/Acetaminophen (Hydrocodone-Acetamin 7.5-325) 1 Each Tablet, 1 TAB PO PRN TID PRN for PAIN for 30 Days, #90 08/31/19 Mirtazapine (MIRTAZAPINE) 30 Mg Tablet, 30 MG PO QHS for sleep for 30 Days, #30 08/31/19 Pyridostigmine [place] (PYRIDOSTIGMINE BROMIDE) 60 Mg Tablet, 60 MG PO BID for Myasthenia gravis for 30 Days, #60 08/31/19 Diazepam (Diazepam) 10 Mg Tablet, 10 MG PO PRN DAILY PRN for ANXIETY / AGITATION for 30 Days, #30 08/31/19 LUCIA MOTTA MD Sep 03, 2019 14:37
--- NOTE | 2019-09-03 14:40 | PDOC3 ---
Discharge Summary Visit Information Date of Admission: Aug 31, 2019 Date of Discharge: Sep 03, 2019 Admitting Diagnosis: Diarrhea Final Diagnosis Problems Medical Problems: (1) Acute chest pain Status: Acute (2) Diarrhea Status: Acute (3) Hyperglycemia Status: Acute (4) Hypomagnesemia Status: Acute (5) Left lower quadrant pain Status: Acute (6) Syncope Status: Acute Brief Hospital Course Allergies Allergies Coded Allergies Type Severity Reaction Last Updated Verified No Known Drug Allergies 12/26/15 No Vital Signs Vital Signs Date Time Temp Pulse Resp B/P (MAP) Pulse Ox O2 Delivery O2 Flow Rate FiO2 09/03/19 11:16 98.6 85 18 160/83 (108) 97 Room Air 98.6 Lab Results Laboratory Tests Test 09/01/19 16:59 09/01/19 20:29 09/02/19 08:58 09/02/19 12:34 Glucose (Fingerstick) 187 mg/dL (70-99) 246 mg/dL (70-99) 209 mg/dL (70-99) 165 mg/dL (70-99) Test 09/02/19 17:18 09/02/19 17:46 09/02/19 20:53 09/03/19 08:05 Glucose (Fingerstick) 59 mg/dL (70-99) 102 mg/dL (70-99) 319 mg/dL (70-99) 285 mg/dL (70-99) Test 09/03/19 11:50 09/03/19 13:30 Glucose (Fingerstick) 192 mg/dL (70-99) Urine Collection Type Unknown Urine Color Olga Lidia Urine Clarity Clear Urine pH 5.5 Urine Specific [place] >=1.030 Urine Protein >=300 mg/dL (NEG-TRACE) Urine Glucose (UA) 500 mg/dL (NEG) Urine Ketones (Stick) Trace mg/dL (NEG) Urine Blood Small (NEG) Urine Nitrite Negative (NEG) Urine Bilirubin Negative (NEG) Urine Urobilinogen Dipstick 0.2 mg/dL (0.2 mg/dL) Urine Leukocyte Esterase Negative (NEG) Urine RBC 3-5 /HPF (0-2) Urine WBC 0 /HPF (0-4) Urine Squamous Epithelial Cells Few /LPF Urine Bacteria 0 /HPF (0-FEW) Urine Mucus Marked /LPF Laboratory Tests Test 09/02/19 17:18 09/02/19 17:46 09/02/19 20:53 09/03/19 08:05 Glucose (Fingerstick) 59 mg/dL (70-99) 102 mg/dL (70-99) 319 mg/dL (70-99) 285 mg/dL (70-99) Test 09/03/19 11:50 09/03/19 13:30 Glucose (Fingerstick) 192 mg/dL (70-99) Urine Collection Type Unknown Urine Color Olga Lidia Urine Clarity Clear Urine pH 5.5 Urine Specific [place] >=1.030 Urine Protein >=300 mg/dL (NEG-TRACE) Urine Glucose (UA) 500 mg/dL (NEG) Urine Ketones (Stick) Trace mg/dL (NEG) Urine Blood Small (NEG) Urine Nitrite Negative (NEG) Urine Bilirubin Negative (NEG) Urine Urobilinogen Dipstick 0.2 mg/dL (0.2 mg/dL) Urine Leukocyte Esterase Negative (NEG) Urine RBC 3-5 /HPF (0-2) Urine WBC 0 /HPF (0-4) Urine Squamous Epithelial Cells Few /LPF Urine Bacteria 0 /HPF (0-FEW) Urine Mucus Marked /LPF Brief Hospital Course Mr Mims is a 59 year old with history of coronary artery disease status post CABG, diabetes, hypertension, dyslipidemia, smoking, Depression, and myasthenia gravis who presents with complaining of chest pain and side pain. Patient states he has had intermittent episodes of chest pain for the last 1 week and had pain in the substernal area since yesterday. Patient states he had a syncopal episode yesterday and had a fall without head injury and his friend has insisted he come to the ED. Patient complaining of increasing pain since his fall as a sharp pain with radiation to his back and associated with shortness of breath, nausea, dizziness, palpitation. Patient states he had more than 10 episodes of diarrhea yesterday and more than 10 episodes of nonbloody diarrhea today and complaining of left lower quadrant cramping pain and rated his pain 10 over 10. Patient denies taking aspirin or nitroglycerin today. Labs significant for glucose of 333, otherwise negative troponin. EKG - normal sinus rhythm at rate of 77, left atrial abnormality, poor R-wave progress in anteroseptal leads, no acute ST and T-wave elevation. CXR no acute abnormalities. His orthostatics were negative in ED on my examination. Due to his high risk cardiac history with CABG and his symptoms admitted for further workup. 09/01: Still with chest discomfort. d dimer is elevated. Will go forward with CTPA to r/o PE as cause of his syncopal episode. CTPA negative. C. difficile positive. A1c 9. Seen by cardiology, ruled out for MA. A1c 9. Overnight his abdominal symptoms improved after starting c. difficile treatment. Carotid dopplers clear. Blood glucose improved. He slept well. Di arrhea better with vancomycin A/P: Chest pain - with strong history, will trend troponins. ASA, NTG helped, consulted cardiology, ruled out MA Syncope - no tachycardia, but does have CP, CTPA negative and echo and carotid dopplers. Likely vasovagal from his GI complaints, c difficile Hypomagnesemia - 1.6, will replace IV Abdominal pain with diarrhea - POSITIVE FOR C. DIFFICILE. oral vancomycin QID 125mg for 10 days Coronary artery disease status post CABG - stable on meds Diabetes - with hyperglycemia, will place on basal bolus plus regimen for insulin Hypertension - cont losartan Dyslipidemia - cont statin Smoking - offered nicotine patch Depression - he has f/u at [facility], is on a number of medications, this could play a role in his syncope as well Myasthenia gravis - cont mestinon The left ventricle is normal size. The left ventricular systolic function is low normal. The Ejection Fraction is estimated at 50%. There is slight septal hypokinesis. Doppler and Color Flow revealed no significant aortic regurgitation. There is no significant aortic valvular stenosis. Doppler and Color Flow revealed no mitral valve regurgitation noted. Doppler and Color Flow revealed trace tricuspid regurgitation with an estimated PAP of 26 mmHg. Greater than 30 minutes spent on d/c Discharge Information Condition at Discharge: Improved Follow Up: Weeks (2) Disposition/Orders: D/C to Home w/ HH Scheduled Aripiprazole (Aripiprazole) 30 Mg Tablet, 30 MG PO QHS for mood for 30 Days, #30 (Reported) Entered as Reported by: LUCIA MOTTA MD on 08/31/192224 Last Taken: Unknown Dose on 08/30/19 Last Action: Converted on 08/31/192227 by LUCIA MOTTA MD Atorvastatin Calcium (Atorvastatin Calcium) 20 Mg Tablet, 20 MG PO QHS for hld for 30 Days, #30 (Reported) Entered as Reported by: LUCIA MOTTA MD on 08/31/192224 Last Taken: Unknown Dose on 08/30/19 Last Action: Continued on 08/31/192227 by LUCIA MOTTA MD Clopidogrel Bisulfate (Clopidogrel) 75 Mg Tablet, 75 MG PO DAILY for CAD for 30 Days, #30 (Reported) Entered as Reported by: LUCIA MOTTA MD on 08/31/192224 Last Taken: Unknown Dose on 08/30/19 Last Action: Continued on 08/31/192227 by LUCIA MOTTA MD Finasteride (Finasteride) 5 Mg Tablet, 5 MG PO DAILY for BPH for 30 Days, #30 (Reported) Entered as Reported by: LUCIA MOTTA MD on 08/31/192224 Last Taken: Unknown Dose on 08/30/19 Last Action: Continued on 08/31/192227 by LUCIA MOTTA MD Gabapentin (Gabapentin) 300 Mg Capsule, 300 MG PO TID for DM for 30 Days, #90 (Reported) Entered as Reported by: LUCIA MOTTA MD on 08/31/192224 Last Taken: Unknown Dose on 08/30/19 Last Action: Continued on 08/31/192227 by LUCIA MOTTA MD Insulin Aspart (Novolog Flexpen) 100 Unit/1 Ml Insuln.pen, 12 UNITS SQ TIDAC for DM for 30 Days, #1 (Reported) Entered as Reported by: LUCIA MOTTA MD on 08/31/192224 Last Taken: Unknown Dose on 08/30/19 Last Action: Converted on 08/31/192227 by LUCIA MOTTA MD Losartan Potassium (Losartan Potassium) 50 Mg Tablet, 50 MG PO DAILY for dm2 for 30 Days, #30 (Reported) Entered as Reported by: LUCIA MOTTA MD on 08/31/192224 Last Taken: Unknown Dose on 08/30/19 Last Action: Continued on 08/31/192227 by LUCIA MOTTA MD Mirtazapine (Mirtazapine) 30 Mg Tablet, 30 MG PO QHS for sleep for 30 Days, #30 (Reported) Entered as Reported by: LUCIA MOTTA MD on 08/31/192224 Last Taken: Unknown Dose on 08/30/19 Last Action: Converted on 08/31/192227 by LUCIA MOTTA MD Olanzapine (Olanzapine) 10 Mg Tablet, 10 MG PO QHS for Mood for 30 Days, #30 (Reported) Entered as Reported by: LUCIA MOTTA MD on 08/31/192224 Last Taken: Unknown Dose on 08/30/19 Last Action: Converted on 08/31/192227 by LUCIA MOTTA MD Omeprazole (Omeprazole) 40 Mg Capsule.dr, 40 MG PO DAILY for GERD for 30 Days, #30 (Reported) Entered as Reported by: LUCIA MOTTA MD on 08/31/192224 Last Taken: Unknown Dose on 08/30/19 Last Action: Converted on 08/31/192227 by LUCIA MOTTA MD Pyridostigmine [place] (Pyridostigmine [place]) 60 Mg Tablet, 60 MG PO BID for Myasthenia gravis for 30 Days, #60 (Reported) Entered as Reported by: LUCIA MOTTA MD on 08/31/192224 Last Taken: Unknown Dose on 08/30/19 Last Action: Continued on 08/31/192227 by LUCIA MOTTA MD Tamsulosin Hcl (Flomax) 0.4 Mg Cap.er.24h, 0.4 MG PO QHS for BPH for 30 Days, #30 (Reported) Entered as Reported by: LUCIA MOTTA MD on 08/31/192224 Last Taken: Unknown Dose on 08/30/19 Last Action: Continued on 08/31/192227 by LUCIA MOTTA MD Vancomycin Hcl (Vancomycin Hcl) 500 Mg Vial, 125 MG PO [id number] for C. difficile diarrhea for 8 Days, #32 Prescribed by: LUCIA MOTTA MD on 09/03/19 1434 Venlafaxine Hcl (Venlafaxine Hcl Er) 75 Mg Cap.er.24h, 75 MG PO DAILY for mood for 30 Days, #30 (Reported) Entered as Reported by: LUCIA MOTTA MD on 08/31/192224 Last Taken: Unknown Dose on 08/30/19 Last Action: Converted on 08/31/192227 by LUCIA MOTTA MD Scheduled PRN Diazepam (Diazepam) 10 Mg Tablet, 10 MG PO PRN DAILY PRN for ANXIETY / AGITATION for 30 Days, #30 (Reported) Entered as Reported by: LUCIA MOTTA MD on 08/31/192224 Last Action: Continued on 08/31/192227 by LUCIA MOTTA MD Hydrocodone/Acetaminophen (Hydrocodone-Acetamin 7.5-325) 1 Each Tablet, 1 TAB PO PRN TID PRN for PAIN for 30 Days, #90 (Reported) Entered as Reported by: LUCIA MOTTA MD on 08/31/192224 Last Taken: Unknown Dose on 08/30/19 Last Action: Continued on 08/31/192227 by MD KALIA DIAZ CHRISTOPHER S MD Sep 03, 2019 14:40
--- NOTE | 2019-09-03 16:10 | NUR ---
Discharge Note: PEDRITO LOPEZ [address] [place] [address] Discharge instructions and discharge home medications reviewed with Patient and a copy given. All questions have been answered and understanding verbalized. The following instructions and handouts were given: discharge instructions, vanco info, c diff info, hypomagnesia info, malnutrition info. Discontinued lines and drains: Peripheral IV intact. Patient discharged to Home w/services with Family Member via [facility] at 1610.
== END 2019-09-03 16:10 | disposition home health service (06) | DRG 372 ==
LOC: ER 16:05 → 2 NORTH 17:15
PROVIDERS: ADMIT Internal Medicine; ATTEND Internal Medicine
DX: A04.72 Enterocolitis due to Clostridium difficile, not specified as recurrent (principal); Z68.1 Body mass index [BMI] 19.9 or less, adult; E83.42 Hypomagnesemia; I10 Essential (primary) hypertension; E11.65 Type 2 diabetes mellitus with hyperglycemia; E78.00 Pure hypercholesterolemia, unspecified; E78.5 Hyperlipidemia, unspecified; F17.210 Nicotine dependence, cigarettes, uncomplicated; F31.9 Bipolar disorder, unspecified; G70.00 Myasthenia gravis without (acute) exacerbation; W18.39XA Other fall on same level, initial encounter; I25.10 Atherosclerotic heart disease of native coronary artery without angina pectoris; Z82.49 Family history of ischemic heart disease and other diseases of the circulatory system; Z83.3 Family history of diabetes mellitus; Z86.718 Personal history of other venous thrombosis and embolism; Z95.1 Presence of aortocoronary bypass graft; Y93.89 Activity, other specified; Y92.89 Other specified places as the place of occurrence of the external cause; Y99.8 Other external cause status; R63.6 Underweight; R55 Syncope and collapse
CPT/HCPCS: 36415; 71045; 71275; 80048; 80053; 80061; 81001; 82550; 82962; 83036; 83690; 83735; 83880; 84443; 84484; 85025; 85379; 85610; 87493; 93005; 93306; 93880; 96365; 96366; 97161; J1650; J1815; J3475; Q9967; 97110; 99285-25; G0378

== ENCOUNTER → 2020-10-06 | Outpatient (CLI) | payer MEDICARE, OTHER ==
[~2020-10-06] MED LIST: ARIP30TA21 PO; ATOR20TA58 PO; CLOP75TA PO; DIAZ10TA5 PO; FINA5TAB4 PO; GABA300C9 PO; HYDR-2763 PO; INSU100I17 SQ; LOSA50TA15 PO; MIRT30TA3 PO; OLAN10TA9 PO; OMEP40CA45 PO; PYRI60TA PO; TAMS0.4C97 PO; VANC500V PO; VENL75CA6 PO
== END ==
LOC: LAB 12:30
PROVIDERS: ATTEND Internal Medicine Gastroenterology
DX: Z01.812 Encounter for preprocedural laboratory examination (principal); Z86.010 Personal history of colon polyps; Z20.828 Contact with and (suspected) exposure to other viral communicable diseases
CPT/HCPCS: U0003

== ENCOUNTER → 2020-10-10 | Day surgery (SDC) | payer MEDICARE, OTHER ==
[~2020-10-10] MED LIST changes: +GLYCOPYRROLATE 1 MG/5 ML VIAL. ONE; +INSU100V13 SQ; +IV RINGERS,LACTATED 1000ML 1,000 ML IV SCH; +LIDOCAINE 2% PF 5 ML VIAL. ONE; +METO50TA4 PO; +PROPOFOL 10 MG/ML (20ML) VIAL. IV ONE
--- NOTE | 2020-10-10 13:29 | PDOC4 ---
PROCEDURE Procedure Colonoscopy Indication: H/o polyps Meds: per anesthesia Findings: JAIR normal. Scope to cecum. Normal throughout. Carroll. well. IMP: normal exam. REC: Repeat exam in 5 years. LIDYA SINGER MD Oct 10, 2020 13:29
[2020-10-10 13:46] VITALS: BP 189/82
== END | disposition home or self-care (01) ==
LOC: ENDOS 11:21
PROVIDERS: ATTEND Internal Medicine Gastroenterology
DX: Z12.11 Encounter for screening for malignant neoplasm of colon (principal); I25.10 Atherosclerotic heart disease of native coronary artery without angina pectoris; I10 Essential (primary) hypertension; E78.00 Pure hypercholesterolemia, unspecified; E11.9 Type 2 diabetes mellitus without complications; K21.9 Gastro-esophageal reflux disease without esophagitis; F17.210 Nicotine dependence, cigarettes, uncomplicated; Z86.010 Personal history of colon polyps; Z79.82 Long term (current) use of aspirin; Z79.84 Long term (current) use of oral hypoglycemic drugs; Z79.899 Other long term (current) drug therapy; Z98.890 Other specified postprocedural states; Z88.8 Allergy status to other drugs, medicaments and biological substances
CPT/HCPCS: 82962; G0105; J2704; J3490; 45378